=== PATIENT | female | born 1980 | race Caucasian/White ===

== ENCOUNTER → 2017-08-19 | Emergency (ER) | payer MEDICARE, OTHER ==
[~2017-08-19] VITALS: Ht 172.7 cm; Wt 68.9 kg
[~2017-08-19] MED LIST: ABILIFY10 MG PO; ADDERALL 20 MG20 MG PO; AMBIEN5 MG PO; CITALOPRAM HBR20 MG PO; CLONIDINE HCL0.2 MG PO; CYMBALTA30 MG PO; IBUPROFEN400 MG PO; LAMICTAL200 MG PO; LATUDA80 MG PO; MIRALAX17 GM PO; NORCO 5-325 TA1 EACH PO; PRILOSEC OTC20 MG PO; TYLENOL EXTRA500 MG PO; VYVANSE70 MG PO; WELLBUTRIN SR100 MG PO; XANAX1 MG PO; ZOLPIDEM TARTRA10 MG PO
--- NOTE | 2017-08-19 18:57 | EKG ---
[facility] [address] [place], [place] [address] Signed Normal sinus rhythm Normal ECG When compared with ECG of 06-APR-2016 20:56, No significant change was found Confirmed by MARK HARMON MD ([id number]) on 08/19/2017 6:57:18 PM Electronically Signed By: MARK HARMON MD 08/19/17 1857 PATIENT NAME: SETH GAONA LIGIA Electrocardiogram DATE OF : 78 PHYSICIAN: MARK HARMON MD REPORT #: [id number] REPORT IS CONFIDENTIAL AND NOT TO BE RELEASED WITHOUT AUTHORIZATION
== END ==
LOC: ED 07:30
DX: R55 Syncope and collapse (principal); F17.200 Nicotine dependence, unspecified, uncomplicated; Z88.5 Allergy status to narcotic agent; Z79.899 Other long term (current) drug therapy
CPT/HCPCS: 80053; 85025; 93005; 93010; 96360; 99284; J7040

== ENCOUNTER 2018-06-20 07:55 | Emergency (ER) | payer MEDICARE, OTHER ==
[~2018-06-20] VITALS: Ht 172.7 cm; Wt 69.0 kg
--- OUTSIDE RECORDS SUMMARY | ~2018-06-20 | XMS | Clinical Summary ---
Demographics + + + | Address | [address] | | | [place] [address] | + + + | Home Phone | | + + + | Preferred Language | Unknown | + + + | Marital Status | Unknown | + + + | Mosque Affiliation | Unknown | + + + | Race | Unknown | + + + | Ethnic Group | Unknown | + + + Author + + + | Author | [facility] | | | and [place] | + + + | Organization | [facility] | | | and [place] | + + + | Address | Unknown | + + + | Phone | Unavailable | + + + Support + + + + + | Name | Relationship | Address | Phone | + + + + + | Terrence Ortiz | ECON | [place] | | | | | [address] | | + + + + + Care Team Providers + +------+ + | Care Archaeologist Name | Role | Phone | + +------+ + | Kylah Monroe | PP | | | PA | | | + +------+ + Allergies No Known Allergies Medications + + + +---------+------+------+-------+ | Medication | Sig | Dispensed | Refills | Star | End | Statu | | | | | | t | Date | s | | | | | | Date | | | + + + +---------+------+------+-------+ | cyanocobalamin | Take 5,000 mcg by | | 0 | | | Activ | | (VITAMIN B-12) 1000 | mouth Daily. | | | | | e | | MCG tablet | | | | | | | + + + +---------+------+------+-------+ | L-METHYLFOLATE PO | Take 1 tablet by | | 0 | | | Activ | | | mouth Daily. 15 mg | | | | | e | + + + +---------+------+------+-------+ | cloNIDine | Take 0.2 mg by mouth | | 0 | | | Activ | | (CATAPRES) 0.2 MG | nightly. | | | | | e | | tablet | | | | | | | + + + +---------+------+------+-------+ | zolpidem (AMBIEN) | Take 10 mg by mouth | | 0 | | | Activ | | 10 mg tablet | nightly. | | | | | e | + + + +---------+------+------+-------+ Active Problems + + + | Problem | Noted Date | + + + | Near syncope | 07/25/2017 | + + + | Syncope | 07/25/2017 | + + + | Chronic low back pain with right-sided sciatica | 06/25/2016 | + + + | Spondylosis of lumbar region without myelopathy or radiculopathy | 06/25/2016 | + + + | Facet arthritis of lumbar region (HCC) - L4/L5, L5/S1 | 06/25/2016 | + + + | Bulge of lumbar disc without myelopathy - l5/S1 | 06/25/2016 | + + + | Lumbar radiculopathy | 06/25/2016 | + + + Family History + + +------+ + | Medical History | Relation | Name | Comments | + + +------+ + | Hypertension | Father | | | + + +------+ + | Mental illness | Father | | | + + +------+ + | Arthritis | Maternal | | | | | Grandfath | | | | | er | | | + + +------+ + | Bleeding problems | Maternal | | BLOOD CLOTS | | | Grandfath | | | | | er | | | + + +------+ + | Diabetes | Maternal | | | | | Grandfath | | | | | er | | | + + +------+ + | Thyroid disease | Maternal | | | | | Grandfath | | | | | er | | | + + +------+ + | Arthritis | Maternal | | | | | Grandmoth | | | | | er | | | + + +------+ + | Bleeding problems | Maternal | | BLOOD CLOTS | | | Grandmoth | | | | | er | | | + + +------+ + | Breast cancer | Maternal | | | | | Grandmoth | | | | | er | | | + + +------+ + | Hypertension | Maternal | | | | | Grandmoth | | | | | er | | | + + +------+ + | Stroke | Maternal | | | | | Grandmoth | | | | | er | | | + + +------+ + | Colon cancer | Mother | | | + + +------+ + | Uterine cancer | Mother | | | + + +------+ + | Alcohol abuse | Paternal | | | | | Grandfath | | | | | er | | | + + +------+ + | Hypertension | Paternal | | | | | Grandmoth | | | | | er | | | + + +------+ + | Other (see comment) | Paternal | | LUNG PROBLEMS | | | Grandmoth | | | | | er | | | + + +------+ + | Seizures | Neg Hx | | | + + +------+ + + +------+ + + | Relation | Name | Status | Comments | + +------+ + + | Child | | Other | STATUS NOT LISTED | + +------+ + + | Child | | Other | STATUS NOT LISTED | + +------+ + + | Father | | Alive | | + +------+ + + | Maternal Grandfather | | | | | | | (Age | | | | | 87) | | + +------+ + + | Maternal Grandmother | | | STROKE | | | | (Age | | | | | 77) | | + +------+ + + | Mother | | Alive | | + +------+ + + | Paternal Grandfather | | Other | STATUS NOT LISTED | + +------+ + + | Paternal Grandmother | | | LUNG DISORDER | | | | (Age | | | | | 78) | | + +------+ + + Social History + +-------+ +--------+ + | Tobacco Use | Types | Packs/Day | Years | Date | | | | | Used | | + +-------+ +--------+ + | Current Every Day | | 1 | 17 | Started: 2000 | | Smoker | | | | | + +-------+ +--------+ + + +---+---+---+ | Smokeless Tobacco: | | | | | Never Used | | | | + +---+---+---+ + + +---------+ + | Alcohol Use | Drinks/We | oz/Week | Comments | | | ek | | | + + +---------+ + | Yes | 0 | 0.0 | Twice a year | | | Standard | | | | | drinks or | | | | | | | | | | equivalen | | | | | t | | | + + +---------+ + + + + | Sex Assigned at | Date Recorded | | | | + + + | Not on file | | + + + + + + + | Job Start Date | Occupation | Industry | + + + + | Not on file | Not on file | Not on file | + + + + + + + + | Travel History | Travel Start | Travel End | + + + + + + | No recent travel history available. | + + Last Filed Vital Signs + + + + | Vital Sign | Reading | Time Taken | + + + + | Blood Pressure | 111/71 | 09/05/2017 1013 PDT | + + + + | Pulse | 80 | 09/05/2017 1013 PDT | + + + + | Temperature | - | - | + + + + | Respiratory Rate | 16 | 09/05/2017 1013 PDT | + + + + | Oxygen Saturation | 100% | 09/05/20171012 PDT | + + + + | Inhaled Oxygen | - | - | | Concentration | | | + + + + | Weight | 70.3 kg (155 lb) | 09/05/20171012 PDT | + + + + | Height | 172.7 cm (5' 8") | 09/05/20171012 PDT | + + + + | Body Mass Index | 23.57 | 09/05/20171012 PDT | + + + + Plan of Treatment +--------+---------+ + + + | Date | Type | Specialty | Care Team | Description | +--------+---------+ + + + | 07/21/ | Office | | Kam Hoover, | | | 2019 | Visit | | [address]UL[address] | | | | | | [address] [place] | | | | | | [place] [address] | | | | | | [phone] | | | | | | | | +--------+---------+ + + + + + + + + | Health Maintenance | Due Date | Last Done | Comments | + + + + + | Vaccine: | | | | | Dtap/Tdap/Td (1 - | 9 | | | | Tdap) | | | | + + + + + | Vaccine: | | | | | Pneumococcal 19-64 | 9 | | | | (PPSV23 only) Medium | | | | | Risk (1 of 1 - | | | | | PPSV23) | | | | + + + + + | Adult Annual | | | | | Wellness Visit | 5 | | | + + + + + | Vaccine: Influenza | | | | | (Season Ended) | 9 | | | + + + + + Results Not on filefrom Last 3 Months Insurance + +--------+ +--------+ +---------+--------+ | Payer | Benefi | Subscriber | Effect | Phone | Address | Type | | | t Plan | ID | maya | | | | | | / | | Dates | | | | | | Group | | | | | | + +--------+ +--------+ +---------+--------+ | MEDICARE | MEDICA | [id number] | | [phone] | | Medica | | | RE | | 004-Pr | 5 | | re | | | PART A | | esent | | | | | | AND B | | | | | | + +--------+ +--------+ +---------+--------+ | MEDICARE | MEDICA | [id number] | | [phone] | | Medica | | | RE | | 004-Pr | 5 | | re | | | PART A | | esent | | | | | | AND B | | | | | | + +--------+ +--------+ +---------+--------+ | [place] | MEDICA | [id number] | | [phone] | | [place] | | | [place] | | 017-Pr | 2 | | id | | | PLUS | | esent | | | | + +--------+ +--------+ +---------+--------+ | [place] | MEDICA | [id number] | 07/24/19 | [phone] | | Med[place] | | | [place] | | 18-Pre | 2 | | id | | | PLUS | | sent | | | | + +--------+ +--------+ +---------+--------+ + +--------+ +--------+ + + | Guarantor Name | Accoun | Relation to | Date | Phone | Billing Address | | | t Type | Patient | of | | | | | | | | | | + +--------+ +--------+ + + | Sujata Iniguez | Person | Self [birth year] | [address] | | | al/Fam | | 1980 | | [address] [place], [place] | | | lito | | | [address] (Home) | [address] | + +--------+ +--------+ + + | Sujata Iniguez | Person | Self [birth year] | | [address] | | | al/Fam | | 1980 | | [address] [place], [place] | | | lito | | | 7 (Home) | [address] | + +--------+ +--------+ + + Advance Directives Patient has advance care planning documents on file. For more information, please contact:[facility] [place] [address]
--- OUTSIDE RECORDS SUMMARY | ~2018-06-20 | XMS | Clinical Summary ---
Demographics + + + | Address | [address] | | | [place] [address] | + + + | Home Phone | | + + + | Preferred Language | Unknown | + + + | Marital Status | | + + + | Zoroastrian Affiliation | Unknown | + + + | Race | Unknown | + + + | Ethnic Group | Unknown | + + + Author + + + | Author | [facility] | + + + | Organization | [facility] | + + + | Address | Unknown | + + + | Phone | Unavailable | + + + Support + + +---------+ + | Name | Relationship | Address | Phone | + + +---------+ + | Terrence Ortiz | ECON | Unknown | | + + +---------+ + Care Team Providers + +------+ + | Care Sound Controller Name | Role | Phone | + +------+ + | Kylah Monroe | PP | | + +------+ + Allergies Not on File Current Medications + + +-------+---------+------+------+-------+ | Prescription | Sig. | Disp. | Refills | Star | End | Statu | | | | | | t | Date | s | | | | | | Date | | | + + +-------+---------+------+------+-------+ | Cyanocobalamin | Take 1,000 mcg by | | | | | Activ | | (VITAMIN B 12 PO) | mouth. | | | | | e | + + +-------+---------+------+------+-------+ | Levomefolate | Take 50 mg by mouth. | | | | | Activ | | Glucosamine | | | | | | e | | (METHYLFOLATE PO) | | | | | | | + + +-------+---------+------+------+-------+ | Cholecalciferol | Take by mouth 2 | | | | | Activ | | (VITAMIN D3) 2000 | (two) times daily. | | | | | e | | units TABS | | | | | | | + + +-------+---------+------+------+-------+ Active Problems + + + | Problem [...] | 02/20/2016 | + + + Encounters +--------+---------+ + + + | Date | Type | Specialty | Care Team | Description | +--------+---------+ + + + | 04/16/ | Office | | Angelita Mccallum DO | Orthostatic | | 2019 | Visit | | | hypotension (Primary | | | | | | Dx) | +--------+---------+ + + + from Last 3 Months [...] AM PST | + + + + Plan of Treatment +--------+---------+ + + + | Date | Type | Specialty | Care Team | Description | +--------+---------+ + + + | 07/02/ | Office | | Angelita Mccallum DO | | | 2019 | Visit | | [address] | | | | | | [place] | | | | | | [address] | | | | | | | [...] +------+-------+ + | MEDICARE | MEDICA | [id number] | | | [address] | | | RE | | | | [place] [address] | | | IP-OP | | | | | + +--------+ +------+-------+ + | MEDICAID | MEDICA | [id number] | | | [address] | | | ID | | | | [place] | | | [place] | | | | [address] | + +--------+ +------+-------+ + + +--------+ +--------+ + + | Guarantor Name | Accoun | Relation to | Date | Phone | Billing Address | | | t Type | Patient | of | | | | | | | | | | + +--------+ +--------+ + + | SETH INIGUEZ | Person | Self [birth year] | Home: | [address] | | | al/Fam | | 1980 | [phone] | [address] [place] | | | [place] | | | [phone] | [phone] | + +--------+ +--------+ + +
--- OUTSIDE RECORDS SUMMARY | ~2018-06-20 | XMS | Clinical Summary ---
Demographics + + + | Address | [address] | | | [place] [address] | + + + | Home Phone | | + + + | Preferred Language | Unknown | + + + | Marital Status | Single | + + + | Druze Affiliation | NON | + + + | Race | White | + + + | Ethnic Group | Not or | + + + Author + + + | Author | [facility] LOC[facility] | + + + | Organization | NON REVENUE LOCATIONS | + + + | Address | Unknown | + + + | Phone | Unavailable | + + + Support + + +---------+ + | Name | Relationship | Address | Phone | + + +---------+ + | Terrence Ortiz | ECON | Unknown | | + + +---------+ + Care Team Providers + +------+ + | Care Cardiac Cath Technician Name | Role | Phone | + +------+ + | Kylah Monroe | PP | | + +------+ + Source Comments MELANIE is fully live on both [facility] and [facility] Allergies No Known Allergies Current Medications + + +-------+---------+------+------+-------+ | Prescription | Sig. | Disp. | Refills | Star | End | Statu | | | | | | t | Date | s | | | | | | Date | | | + + +-------+---------+------+------+-------+ | Cholecalciferol, | Take 5,000 Units by | | | | | Activ | | Vitamin D3, 5,000 | mouth once daily. | | | | | e | | unit oral tablet | | | | | | | + + +-------+---------+------+------+-------+ | LEVOMEFOLATE | Take by mouth once | | | | | Activ | | CALCIUM (ELFOLATE | daily. | | | | | e | | ORAL) | | | | | | | + + +-------+---------+------+------+-------+ | cyanocobalamin | Take 1,000 mcg by | | | | | Activ | | (VITAMIN B-12) 1,000 | mouth once daily. | | | | | e | | mcg oral tablet | | | | | | | + + +-------+---------+------+------+-------+ Active Problems + + + | Problem | Noted Date | + + + | Rectal prolapse | 02/20/2016 | + + + Family History + + +------+ + | Medical History | Relation | Name | Comments | + + +------+ + | GI | Brother | | colon polyp | + + +------+ + | Cancer | Father | | no colorectal cancer in family | + + +------+ + | Psychiatry | Father | | bipolar | + + +------+ + | Pulmonary | Father | | sleep apnea | + + +------+ + | Cancer | Mother | | | + + +------+ + + +------+--------+ + | Relation | Name | Status | Comments | + +------+--------+ + | Brother | | | | + +------+--------+ + | Father | | | | + +------+--------+ + | Mother | | | | + +------+--------+ + Social History [...] Pressure | 107/77 | 09/18/2016 1:23 PM PDT | + + + + | Pulse | 70 | 09/18/2016 1:23 PM PDT | + + + + | Temperature | 36.7 C (98.1 F) | 09/18/2016 1:23 PM PDT | + + + + | Respiratory Rate | 16 | 09/18/2016 1:23 PM PDT | + + + + | Oxygen Saturation | - | - | + + + + | Inhaled Oxygen | - | - | | Concentration | | | + + + + | Weight | 71.2 kg (156 lb 14.4 | 09/18/2016 1:23 PM PDT | | | oz) | | + + + + | Height | 172.7 cm (5' 8") | 09/18/2016 1:23 PM PDT | + + + + | Body Mass Index | 23.86 | 09/18/2016 1:23 PM PDT | + + + + Plan of Treatment + + + + + | Health Maintenance | Due Date | Last Done | Comments | + + + + + | Pneumococcal (Adult) | | | | | (1 of 1 - PPSV23) | 9 | | | + + + + + | Influenza (Flu) | | | | | vaccination (#1) | 8 | | | + + + + + Results Not on filefrom Last 3 Months Insurance + +--------+ +--------+ + + | Payer | Benefi | Subscriber | Type | Phone | Address | | | t Plan | ID | | | | | | / | | | | | | | Group | | | | | + +--------+ +--------+ + + | MEDICARE | MEDICA | xxxxxxxxxx | Medica | [phone] | [address] | | | RE A & | | re | [phone] | [place] [address] | | | B | | | | | + +--------+ +--------+ + + | [place]ID [place] | OHP | xxxxxxxx | Medica | [phone] [address] [address] | | | PLUS | | id | [phone] | [place] [address] | | | OPEN | | | | | | | CARD | | | | | + +--------+ +--------+ + + + +--------+ +--------+ + + | Guarantor Name | Accoun | Relation to | Date | Phone | Billing Address | | | t Type | Patient | of | | | | | | | | | | + +--------+ +--------+ + + | SETH INIGUEZ | Person | Self [birth year] | Home: | [address] | | | al/Fam | | 1981 | [phone] | [place] [address] | | | [place] | | | [address] | | + +--------+ +--------+ + +
--- OUTSIDE RECORDS SUMMARY | ~2018-06-20 | XMS | Clinical Summary ---
Demographics + + + | Address | [address] | | | [place] [address] | + + + | Home Phone | | + + + | Preferred Language | Unknown | + + + | Marital Status | Unknown | + + + | Taoism Affiliation | Unknown | + + + | Race | Unknown | + + + | Ethnic Group | Unknown | + + + Author + + + | Author | [facility] | | | and [place] | + + + | Organization | [facility] | | | and [place] | + + + | Address | Unknown | + + + | Phone | Unavailable | + + + Support + + + + + | Name | Relationship | Address | Phone | + + + + + | Terrence Ortiz | ECON | [place] | | | | | [address] | | + + + + + Care Team Providers + +------+ + | Care Lens Blank Gauger Name | Role | Phone | + [...] [place] | | | | | | [place] [address] | | | | | | [phone] | | | | | | | [...] +--------+ +---------+--------+ | MEDICARE | MEDICA | [id number] | | [phone] | | Medica | | | RE | | 004-Pr | 5 | | re | | | PART A | | esent | | | | | | AND B | | | | | | + +--------+ +--------+ +---------+--------+ | MEDICARE | MEDICA | [id number] | | [phone] | | Medica | | | RE | | 004-Pr | 5 | | re | | | PART A | | esent | | | | | | AND B | | | | | | + +--------+ +--------+ +---------+--------+ | [place]ID [place] | MEDICA | [id number] | | [phone] | | Medica | | | [place] | | 017-Pr | 2 | | id | | | PLUS | | esent | | | | + +--------+ +--------+ +---------+--------+ | [place] | MEDICA | [id number] | 07/24/19 | [phone] | | Medica [...] [place] | | | 7 (Home) | [address] | + +--------+ +--------+ + + | Sujata Iniguez | Person | Self [birth year] | | [address] | | | al/Fam | | 1980 | | [address] [place], [place] | | | [place] | | | 7 (Home) | [address] | + +--------+ +--------+ + + Advance Directives Patient has advance care planning documents on file. For more information, please contact:[facility] [place] [address]
--- OUTSIDE RECORDS SUMMARY | ~2018-06-20 | XMS | Encounter Summary ---
Demographics + + + | Address | [address] | | | [place] [address] | + + + | Home Phone | | + + + | Preferred Language | Unknown | + + + | Marital Status | | + + + | Buddhist Affiliation | Unknown | + + + | Race | Unknown | + + + | Ethnic Group | Unknown | + + + Author + + + | Author | [facility] | + + + | Organization | [facility] | + + + | Address | Unknown | + + + | Phone | Unavailable | + + + Support + + +---------+ + | Name | Relationship | Address | Phone | + + +---------+ + | Terrence Ortiz | ECON | Unknown | | + + +---------+ + Care Team Providers + +------+ + | Care Robotic Toy Inventor Name | Role | Phone | + [...] | | 2019 | Visit | Cardiology [place] | [address] | hypotension (Primary | | | | [address] | [place] | Dx) | | | | [address] [address] | | | | | [place] [address] | | | | | | [phone] | | | +--------+---------+ + + + [...] may be different from rani kulkarni. [facility] Cardiology Cardiology Follow Up Note Reason for [...] this monitor. The patient is a current agsh-efk-zrwd-a-day smoker. We discussed smoking cessation. She has [...] + + | 07/02/ | Office | Cardiology | Angelita Mccallum DO | | | 2018 | Visit | | [address] | | | | | | [place], [place] | | | | | | [address] | | | | | | | | +--------+---------+ + + + as of this encounter Visit Diagnoses + + | Diagnosis | + + | Orthostatic hypotension - Primary | + +
--- OUTSIDE RECORDS SUMMARY | ~2018-06-20 | XMS | Clinical Summary ---
Demographics + + + | Address | [address] | | | [place] [address] | + + + | Home Phone | | + + + | Preferred Language | Unknown | + + + | Marital Status | Single | + + + | Religion Affiliation | NON | + + + [...] Team Providers + +------+ + | Care Car Oiler Name | Role | Phone | + +------+ + | Kylah Monroe | PP | | + +------+ + Source Comments MELANIE is fully live on both [facility] and [facility] InPatient.[facility] Allergies No Known Allergies Current [...] | MEDICA | xxxxxxxxxx | Medica | [phone] | [address] | | | RE A & | | re | [phone] | [place] [address] | | | B | | | | | + +--------+ +--------+ + + | MEDICAID [place] | OHP | xxxxxxxx | Medica | [phone] [address] [address] | | | PLUS | | id | [phone] | [place] [address] | | | OPEN | | | [...] | | al/Fam | | 1981 | [phone] | [place] [address] | | | [place] | | | [address] | | + +--------+ +--------+ + +
--- OUTSIDE RECORDS SUMMARY | ~2018-06-20 | XMS | Encounter Summary ---
Demographics + + + | Address | [address] | | | [place] [address] | + + + | Home Phone | | + + + | Preferred Language | Unknown | + + + | Marital Status | | + + + | Worship Affiliation | Unknown | + + + | Race | Unknown | + + + | Ethnic Group | Unknown | + + + Author + + + | Author | [facility] | + + + | Organization | [facility] | + + + | Address | Unknown | + + + | Phone | Unavailable | + + + Support + + +---------+ + | Name | Relationship | Address | Phone | + + +---------+ + | Terrence Ortiz | ECON | Unknown | | + + +---------+ + Care Team Providers + +------+ + | Care Spacer Type Bar And Segment Name | Role | Phone | + [...] | | 2019 | Visit | Cardiology [place] | [address] | hypotension (Primary | | | | [address] | [place] | Dx) | | | | [address] [address] | | | | | [place] [address] | | | | | | [phone] | | | +--------+---------+ + + + [...] note may be different from rani kulkarni. [facility] Cardiology Cardiology Follow Up Note Reason [...] this monitor. The patient is a current ssdw-vvw-qfhg-a-day smoker. We discussed smoking cessation. She has [...] | | | | | [place] [place], [place] | | | | | | [address] | | | | | | | | +--------+---------+ + + + as of this encounter Visit Diagnoses + + | Diagnosis | + + | Orthostatic hypotension - Primary | + +
--- OUTSIDE RECORDS SUMMARY | ~2018-06-20 | XMS | Clinical Summary ---
Demographics + + + | Address | [address] | | | [place] [address] | + + + | Home Phone | | + + + | Preferred Language | Unknown | + + + | Marital Status | | + + + | Buddhist Affiliation | Unknown | + + + | Race | Unknown | + + + | Ethnic Group | Unknown | + + + Author + + + | Author | [facility] | + + + | Organization | [facility] | + + + | Address | Unknown | + + + | Phone | Unavailable | + + + Support + + +---------+ + | Name | Relationship | Address | Phone | + + +---------+ + | Terrence Ortiz | ECON | Unknown | | + + +---------+ + Care Team Providers + +------+ + | Care Roller Man Name | Role | Phone | + [...] [place] | | | | | | [address] | | | | | | | [...] +------+-------+ + | MEDICARE | MEDICA | [id number] | | | [address] | | | RE | | | | [place] [address] | | | IP-OP | | | | | + +--------+ +------+-------+ + | MEDICAID | MEDICA | [id number] | | | [address] | | | ID | | | | [place] | | | [place] | | | | [phone] | + +--------+ +------+-------+ + + +--------+ [...] | [place] | | | [address] | [address] | + +--------+ +--------+ + +
--- OUTSIDE RECORDS SUMMARY | 2018-06-20 07:58 | XMS ---
PreManage Notification: SETH GAONA Security Sterile Process Tech Events No recent Security Events currently on file CRITERIA MET - RAVENP CARE PROVIDERS HEMAL CARBAJAL Physician Tip Tester Current PHONE: Unknown Heather has no Care Guidelines for this patient. EShyann VISIT COUNT (12 MO.) 2 BETO [facility] TOTAL 2 NOTE: Visits indicate total known visits. ED/UCC VISIT TRACKING (12 MO.) 06/20/2018 07:56 [facility] [place] TYPE: Emergency COMPLAINT: - BACK PAIN/NO INJURY 08/19/2017 07:30 [facility] [place] TYPE: Emergency COMPLAINT: - SYNCOPE DIAGNOSES: - Other equipment operator intermodal yard (current) drug therapy - Syncope and collapse - Nicotine dependence, unspecified, uncomplicated - Allergy status to narcotic agent status INPATIENT VISIT TRACKING (12 MO.) No inpatient visits to display in this time frame [id number]
[2018-06-20] MEDS ORDERED: CYCLOBENZAPRINE10 MG PO (08:19)
[2018-06-20] MEDS ORDERED: ULTRAM50 MG PO (08:19)
[2018-06-20] MEDS ORDERED: VITAMIN D35000 UNI1 PO (08:20)
== END 2018-06-20 10:37 | disposition home or self-care (01) ==
LOC: ED 07:55
DX: G89.29 Other chronic pain (principal); M54.5 Low back pain; F32.9 Major depressive disorder, single episode, unspecified; F17.200 Nicotine dependence, unspecified, uncomplicated; Z90.710 Acquired absence of both cervix and uterus; Z88.5 Allergy status to narcotic agent; Z79.899 Other long term (current) drug therapy
CPT/HCPCS: 96372; 99283-25; 99406; J1885; J2550

== ENCOUNTER 2018-07-05 17:53 | Emergency (ER) | payer MEDICARE, OTHER ==
[~2018-07-05] VITALS: Ht 172.7 cm; Wt 69.0 kg
--- OUTSIDE RECORDS SUMMARY | ~2018-07-05 | XMS | Encounter Summary ---
Demographics + + + | Address | [address] | | | [place] [address] | + + + | Home Phone | | + + + | Preferred Language | Unknown | + + + | Marital Status | Single | + + + | Hindu Affiliation | NON | + + + | Race | White | + + + | Ethnic Group | Not or | + + + Author + + + | Author | [facility] | + + + | Organization | [facility] | + + + | Address | Unknown | + + + | Phone | Unavailable | + + + Support + + +---------+ + | Name | Relationship | Address | Phone | + + +---------+ + | Terrence Ortiz | ECON | Unknown | | + + +---------+ + Care Team Providers + +------+ + | Care Health Researcher Name | Role | Phone | + +------+ + | Kylah Monroe | PCP | | + +------+ + Encounter Details +--------+---------+ + + + | Date | Type | Department | Care Team | Description | +--------+---------+ + + + | 09/18/ | Office | Preoperative | Jazmín Chamorro NP | Preop examination | | 2017 | Visit | Medicine Clinic at | | (Primary Dx) | | | | [facility] 4th Floor [address] | | | | | | [address] Mail | | | | | | Code: [address] | | | | | | for Health and | | | | | | Healing,4th Floor | | | | | | [place], [place] | | | | | | [address] | | | | | | [phone] | | | +--------+---------+ + + + Social History + +-------+ +--------+------+ | Tobacco Use | Types | Packs/Day | Years | Date | | | | | Used | | + +-------+ +--------+------+ | Current Every Day | | 1.5 | | | | Smoker | | | | | + +-------+ +--------+------+ + +---+---+---+ | Smokeless Tobacco: | | | | | Never Used | | | | + +---+---+---+ + + +---------+ + | Alcohol Use | Drinks/Week | oz/Week | Comments | + + +---------+ + | Yes | | | 4 times a year | + + +---------+ + + + [...] recent travel history available. | + + documented as of this encounter Progress Notes Jazmín Chamorro NP - 09/18/2016 3:00 PM PDTPt was a no show. documented in this encounter Plan of Treatment + + +--------+ + + | Name | Type | Priori | Associated Diagnoses | Order Schedule | | | | ty | | | + + +--------+ + + | COMMUNICATION TO [facility] | Procedures | Routin | Preop examination | Ordered: 09/18/2016 | | LAB DRAW | | e | | | + + +--------+ + + documented as of this encounter Visit Diagnoses + + | Diagnosis | + + | Preop examination - Primary Preoperative examination, unspecified | + + documented in this encounter"
--- OUTSIDE RECORDS SUMMARY | ~2018-07-05 | XMS | Encounter Summary ---
Demographics + + + | Address | [address] | | | [place] [address] | + + + | Home Phone | | + + + | Preferred Language | Unknown | + + + | Marital Status | Single | + + + | Adventism Affiliation | NON | + + + | Race | White | + + + | Ethnic Group | Not or | + + + Author + + + | Author | [facility] | + + + | Organization | [facility] | + + + | Address | Unknown | + + + | Phone | Unavailable | + + + Support + + +---------+ + | Name | Relationship | Address | Phone | + + +---------+ + | Terrence Ortiz | ECON | Unknown | | + + +---------+ + Care Team Providers + +------+ + | Care Monument Erector Name | Role | Phone | + +------+ + | Kylah Monroe | PCP | | + +------+ + Reason for Referral Consult to [place] (Routine) +--------+--------+ + + + + | Status | Reason | Specialty | Diagnoses / | Referred By | Referred To | | | | | Procedures | Contact | Contact | +--------+--------+ + + + + | Closed | | Surgery | Diagnoses | Marian Huang, | Marian Huang, | | | | | Rectal | [address] | | | | | prolapse | Jeremy Velasquez | Jeremy Velasquez | | | | | Procedures | Julia Morel | Julia Morel | | | | | REQUEST TO | [facility] [place] | [place], [place] | | | | | SURGERY | [address] | [address] | | | | | COLD PRESS OPERATOR | Phone: | Phone: | | | | | | [phone] | [phone] | | | | | | Fax: | Fax: | | | | | | [phone] | [phone] | +--------+--------+ + + + + Reason for Visit + + + | Reason | Comments | + + + | Surgery Scheduling | LM re surgery scheduling | + + + Encounter Details +--------+ + + + + | Date | Type | Department | Care Team | Description | +--------+ + + + + | 06/07/ | Telephone | [facility] | Marian Huang MD | Surgery Scheduling | | 2016 | | [place] [address] [phone] | [address] | (LM re surgery | | | | [place] | [facility], | scheduling) | | | | Mailcode: [facility] [address] | | | | | for [facility] and | [phone] | | | | | [facility] [address] | | | | | | [place], [place] | | | | | | [address] | | | | | | [phone] | | | +--------+ + + + + Social History + +-------+ [...] + + documented as of this encounter Plan of Treatment Not on filedocumented as of this encounter Visit Diagnoses + + | Diagnosis | + + | Rectal prolapse - Primary | + + documented in this encounter"
--- OUTSIDE RECORDS SUMMARY | ~2018-07-05 | XMS | Encounter Summary ---
Demographics + + + | Address | [address] | | | [place] [address] | + + + | Home Phone | | + + + | Preferred Language | Unknown | + + + | Marital Status | Single | + + + | Jainism Affiliation | NON | + + + | Race | White | + + + | Ethnic Group | Not or | + + + Author + + + | Author | [facility] | + + + | Organization | [facility] | + + + | Address | Unknown | + + + | Phone | Unavailable | + + + Support + + +---------+ + | Name | Relationship | Address | Phone | + + +---------+ + | Terrence Ortiz | ECON | Unknown | | + + +---------+ + Care Team Providers + +------+ + | Care Block Cleaner Name | Role | Phone | + +------+ + PCP | Unavailable | + +------+ + Encounter Details +--------+ + + + + | Date | Type | Department | Care Team | Description | +--------+ + + + + | 08/28/ | Results | [facility] [address] | Emilie Banuelos | | | 2010 | Only | [address] | [phone] | | | | | [place] | | | | | | [address] | | | +--------+ + + + + Social History + +-------+ +--------+------+ | Tobacco Use | Types | Packs/Day | Years | Date | | | | | Used | | + +-------+ +--------+------+ | Never Assessed | | | | | + +-------+ +--------+------+ + + + | Sex Assigned at [...] Not on filedocumented as of this encounter Procedures + +--------+ + + + | Procedure Name | Priori | Date/Time | Associated Diagnosis | Comments | | | ty | | | | + +--------+ + + + | CBC WITH MANUAL | Routin | 08/29/2010 | | Results for this | | DIFFERENTIAL | e | 5:11 AM | | procedure are in the | | | | PDT | | results section. | + +--------+ + + + | CAP GLU,POC | Routin | 08/28/2010 | | Results for this | | | e | 7:16 AM | | procedure are in the | | | | PDT | | results section. | + +--------+ + + + documented in this encounter Results CBC WITH MANUAL DIFFERENTIAL (08/29/2010 5:11 AM PDT) + + + + + + | Component | Value | Ref Range | Performed | Pathologist | | | | | At | Signature | + + + + + + | WHITE BLOOD | 13.5 (H) | 4.3 - 11.0 X10 | [facility] | | | CELL COUNT | | 3/ul | A [facility] | | | | | | [facility] | | + + + + + + | WBC, | AUDITOR INTERNAL | X10 3/uL | [facility] | | | ADJUSTED | | | A [facility] | | | | | | CENTER | | + + + + + + | HEMOGLOBIN | 13.3 | 12.0 - 16.0 | [facility] | | | | | g/dL | A [facility] | | | | | | CENTER | | + + + + + + | RED BLOOD | 4.27 | 4.2 - 5.4 X10 | [facility] | | | CELL COUNT | | 6/uL | A [facility] | | | | | | CENTER | | + + + + + + | HEMATOCRIT | 38.8 | 38.0 - 47.0 % | [facility] | | | | | | A [facility] | | | | | | CENTER | | + + + + + + | MCV | 90.8 | 82 - 100 fl | [facility] | | | | | | A [facility] | | | | | | CENTER | | + + + + + + | MCH | 31.1 | 28.0 - 32.0 pg | [facility] | | | | | | A [facility] | | | | | | CENTER | | + + + + + + | MCHC | 34.3 | 32 - 36 g/dL | [facility] | | | | | | A [facility] | | | | | | CENTER | | + + + + + + | RDW | 11.9 (L) | 12 - 15 fL | [facility] | | | | | | A [facility] | | | | | | CENTER | | + + + + + + | PLATELET | 269 | 150 - 450 X10 3 | [facility] | | | COUNT | | | A [facility] | | | | | | CENTER | | + + + + + + | MPV | 6.8 (L) | 9.0 - 12.0 fL | [facility] | | | | | | A [facility] | | | | | | CENTER | | + + + + + + | NEUTROPHIL | 77.2 | 40 - 80 % | [facility] | | | % | | | A [facility] | | | | | | CENTER | | + + + + + + | LYMPHOCYTE | 17.4 (L) | 20 - 50 % | [facility] | | | % | | | A [facility] | | | | | | CENTER | | + + + + + + | EOS % | 0.4 | 0 - 5 % | [facility] | | | | | | A [facility] | | | | | | CENTER | | + + + + + + | BASO % | 0.6 | 0 - 1 % | [facility] | | | | | | A [facility] | | | | | | CENTER | | + + + + + + | MONOCYTE % | 4.4 | 2 - 10 % | [facility] | | | | | | A [facility] | | | | | | CENTER | | + + + + + + | BANDS % | AUDITOR INTERNAL | 0 - 7 % | [facility] | | | | | | A [facility] | | | | | | CENTER | | + + + + + + | NEUTRO % | 65 | 40 - 70 % | [facility] | | | | | | A [facility] | | | | | | CENTER | | + + + + + + | LYMPHOCYTE | 24 | 10 - 45 % | [facility] | | | %, MANUAL | | | A MEDICAL | | | | | | CENTER | | + + + + + + | MONOCYTE%, | 11 (H) | 2 - 10 % | [facility] | | | MANUAL | | | A [facility] | | | | | | CENTER | | + + + + + + | EOSINOPHIL% | AUDITOR INTERNAL | 0 - 5 % | [facility] | | | , MANUAL | | | A MEDICAL | | | | | | CENTER | | + + + + + + | BASOPHIL%, | AUDITOR INTERNAL | 0 - 1 % | [facility] | | | MANUAL | | | A [facility] | | | | | | CENTER | | + + + + + + | REACTIVE | AUDITOR INTERNAL | 0.0 - 4.0 % | [facility] | | | LYMPHS % | | | A MEDICAL | | | | | | CENTER | | + + + + + + | BANDS % | AUDITOR INTERNAL | 0 - 7 % | [facility] | | | | | | A [facility] | | | | | | CENTER | | + + + + + + | METAMYELOCY | AUDITOR INTERNAL | 0 - 0 % | [facility] | | | APARNA % | | | A MEDICAL | | | | | | CENTER | | + + + + + + | MYELOCYTES | AUDITOR INTERNAL | 0 - 0 % | [facility] | | | % | | | A [facility]ICAL | | | | | | CENTER | | + + + + + + | PROMYELOCYT | AUDITOR INTERNAL | 0 - 0 % | [facility] | | | ES % | | | A MEDICAL | | | | | | CENTER | | + + + + + + | BLASTS | AUDITOR INTERNAL | 0 - 0 % | [facility] | | | | | | A MEDICAL | | | | | | CENTER | | + + + + + + | TOTAL CELLS | 100 | % | [facility] | | | COUNTED | | | A MEDICAL | | | | | | CENTER | | + + + + + + | RBC | NORM RBC MORPHOLOGY | NORMAL | [facility] | | | MORPHOLOGY | | | A [facility]ICAL | | | | | | CENTER | | + + + + + + | WBC | NORM WBC MORPHOLOGY | NORMAL | [facility] | | | MORPHOLOGY | | | A MEDICAL | | | | | | CENTER | | + + + + + + | PLATELET | NORM PLATELET MORPH | NORMAL | [facility] | | | MORPHOLOGY | | | A MEDICAL | | | | | | CENTER | | + + + + + + | NUCLEATED | AUDITOR INTERNAL | | [facility] | | | RBCS | | | A MEDICAL | | | | | | CENTER | | + + + + + + | GIANT PLT | AUDITOR INTERNAL | | [facility] | | | | | | A [facility] | | | | | | CENTER | | + + + + + + + + | Specimen | + + | | + + + + + + + | Performing | Address | City/State/Zipcode | Phone Number | | Organization | | | | + + + + + | [facility] | | | | | LABORATORY | | | | + + + + + | [facility] | And | [place] [address] | | | [facility] | Streets | | | + + + + + CAP GLU,POC (08/28/2010 7:16 AM PDT) + + + + + + | Component | Value | Ref Range | Performed | Pathologist | | | | | At | Signature | + + + + + + | BLOOD | 89Comment: Meter ID: | [id number] - 110 MG/DL | [facility] | | | GLUCOSE, | [id number]: | | OF CARE | | | POC | [id number] [place] | | TESTING | | | | | | | | | | | | | | + + + + + + + + | Specimen | + + | | + + + +---------+ + + | Performing | Address | City/State/Zipcode | Phone Number | | Organization | | | | + +---------+ + + | [facility] | | | | | TESTING | | | | + +---------+ + + documented in this encounter Visit Diagnoses Not on filedocumented in this encounter"
--- OUTSIDE RECORDS SUMMARY | ~2018-07-05 | XMS | Encounter Summary ---
Demographics + + + | Address | [address] | | | [place] [address] | + + + | Home Phone | | + + + | Preferred Language | Unknown | + + + | Marital Status | Single | + + + | Baptist Affiliation | NON | + + + | Race | White | + + + | Ethnic Group | Not or | + + + Author + + + | Author | [facility] | + + + | Organization | [facility] | + + + | Address | Unknown | + + + | Phone | Unavailable | + + + Support + + +---------+ + | Name | Relationship | Address | Phone | + + +---------+ + | Terrence Ortiz | ECON | Unknown | | + + +---------+ + Care Team Providers + +------+ + | Care Trial Judge Name | Role | Phone | + +------+ + | Kylah Monroe | PCP | | + +------+ + Reason for Visit + + + | Reason | Comments | + + + | History and physical | | | examination | | + + + Consultation (Routine) +--------+--------+ + + + + | Status | Reason | Specialty | Diagnoses / | Referred By | Referred To | | | | | Procedures | Contact | Contact | +--------+--------+ + + + + | Closed | | Surgery | Diagnoses | Michelle, | Dontae | | | | | Rectal | Paulino Rivero MD | Júnior Harp MD | | | | | prolapse | [facility] | [address] [facility] | [facility] | | | | | | [facility] | [facility], | | | | | | [address] | [place] | | | | | | [address] | [address] | | | | | | [place], | Phone: | | | | | | [place] [address] | [phone] | | | | | | Phone: | Fax: | | | | | | [phone] | [phone] | | | | | | Fax: | | | | | | | [phone] | | +--------+--------+ + + + + Encounter Details +--------+---------+ + + + | Date | Type | Department | Care Team | Description | +--------+---------+ + + + | 09/18/ | Office | Digestive Health | Marian Huang MD | Rectal prolapse | | 2017 | Visit | [facility] [address] | [address] | (Primary Dx) | | | | [address] | [address] [place], | | | | | Mailcode: [place] | [place] [address] | | | | | [facility] and | [phone] | | | | | [facility] [address] | | | | | | [place], [place] | | | | | | [address] | | | | | | [phone] | | | +--------+---------+ + + + [...] + + documented as of this encounter Last Filed Vital Signs + + + + + | Vital Sign | Reading | Time Taken | Comments | + + + + + | Blood Pressure | 107/77 | 09/18/2016 1:23 PM | | | | | PDT | | + + + + + | Pulse | 70 | 09/18/2016 1:23 PM | | | | | PDT | | + + + + + | Temperature | 36.7 C (98.1 F) | 09/18/2016 1:23 PM | | | | | PDT | | + + + + + | Respiratory Rate | 16 | 09/18/2016 1:23 PM | | | | | PDT | | + + + + + | Oxygen Saturation | - | - | | + + + + + | Inhaled Oxygen | - | - | | | Concentration | | | | + + + + + | Weight | 71.2 kg (156 lb 14.4 | 09/18/2016 1:23 PM | | | | oz) | PDT | | + + + + + | Height | 172.7 cm (5' 8") | 09/18/2016 1:23 PM | | | | | PDT | | + + + + + | Body Mass Index | 23.86 | 09/18/2016 1:23 PM | | | | | PDT | | + + + + + documented in this encounter Patient Instructions Patient Instructions Marian Huang MD - 09/18/2016 1:00 PM PDTPlan: Cancel surgery. Will need to reschedule for 4 weeks after she quits smoking. documented in this encounter Progress Notes EilAhsan MD - 09/18/2016 1:00 PM PDT Colorectal Surgery History and Physical Attending: Marian Huang MD Date: 09/18/2016 CC: recurrent rectal prolapse HPI: Sujata Iniguez is a 35 y.o. female representing to clinic for planned robotic rectopexy tomorrow (09/19/2016). Patient underwent robotic LAR 2012 for this prolapse that recurred several months after the repair. She has also undergone vaginal hysterectomy, anterior colporrhaphy, posterior vagin oplasty with transobturator tape (2010) for uterovaginal prolapse. She has no recurrent prol apse from her vagina. She has reducible prolapse of tissue from her anus that occurs ~ 5x/ day when she sits on t he toilet. She has blood on the toilet paper when she wipes associated with this. Her sympto ms since being seen in clinic December 2015 have changed minimally. She was previously sched uled for her operation on 07/25/2016, but this was deferred due to significant respiratory inf ection. She has ongoing diarrhea and mucousy discharge. She denies significant constipation. She underwent colonoscopy 04/02/2016 which revealed only small polyps in hepatic flexure abilio t were removed. She quit smoking 3 weeks ago. Her significant other does report that he smokes intermittent ly although tries to limit this in the patient's presence. PAST MEDICAL HISTORY: Past Medical History: Diagnosis Date ADHD (attention deficit hyperactivity disorder) Childhood asthma PTSD (post-traumatic stress disorder) Rectal prolapse Uterovaginal prolapse PAST SURGICAL HISTORY: Past Surgical History Procedure Laterality Date total vaginal hysterectomy, anterior colporrhaphy, posterior v plasty; transobturator tape (monarch) 08/28/2010 Robotic low anterior resection 01/26/2013 HOME MEDICATIONS: Current Medication List Name Sig CHOLECALCIFEROL (VITAMIN D3) 5,000 UNIT TABLET Take 5,000 Units by mouth once daily. CYANOCOBALAMIN (VIT B-12) 1,000 MCG TABLET Take 1,000 mcg by mouth once daily. ELFOLATE ORAL Take by mouth once daily. ALLERGIES: No Known Allergies SOCIAL HISTORY: Social History Social History Marital status: Single Spouse name: getting Number of children: 2 Years of education: 13 Occupational History former customer service Social History Main Topics Smoking status: Current Every Day Smoker Packs/day: 1.50 Smokeless tobacco: Never Used Alcohol use Yes Comment: 4 times a year Drug use: Not on file Sexual activity: Yes Other Topics Concern Not on file Social History Narrative Engaged On disability FAMILY HISTORY: Family History Problem Relation Cancer Father no colorectal cancer in family Psychiatry Father bipolar Pulmonary Father sleep apnea Cancer Mother GI Brother colon polyp REVIEW OF SYSTEMS: 13 pt ROS was completed and was negative except as per HPI. PHYSICAL EXAM: Vital signs: Ht 1.727 m (5' 8"), Wt 71.2 kg (156 lb 14.4 oz), BP 107/77, Pulse 70, Temperat ure 36.7 C (98.1 F), Temperature source Oral, RR 16, BMI 23.86 kg/(m^2). General: Alert and oriented, NAD Chest: CTA bilaterally CV: RRR, no m/r/g Gastrointestinal: soft, non tender, non distended, well healed prior incisions Extremities: WWP / Rectal: deferred ASSESSMENT AND PLAN: Sujata Iniguez is a 35 y.o. female who who presents in continued fo llow up for management of rectal prolapse - Patient still desires repair and is indicated. However, she only quit smoking 3 weeks ago and is therefore at significantly high risk for perioperative complications. At the genevieve of 2-3 weeks after quitting smoking the respiratory mucosal inflammatory response is at its gr eatest. We require that the patient be at least 4 weeks pre operatively without tobacco use to proceed with operative repair. - Will cancel case for tomorrow. Patient will call back when she has been not smoking for 4 weeks continuously to schedule repair. Ahsan Taylor MD [facility] Department of Surgery Pager: [phone], Marian Donahue MD - [phone] 1:00 PM PDT COLON AND RECTAL SURGERY Attending History and Physical Established Patient I have seen and examined the patient with the resident. I have repeated the critical porti ons of the history and exam. I discussed the case with the resident, agree with the histor y and findings, and formulated the plan as documented in the resident s note, with the fol lowing additions: Assessment: 35 y.o. female with childhood asthma, attention deficit hyperactivity disorder, and PTSD uterovaginal/bladder prolapse total vaginal hysterectomy, anterior colporrhaphy, posterior v plasty, transobturator tape (monarch) on 08/28/10 isolated rectal prolapse robotic low anterior resection (01/26/13) MR defecography (01/02/16) mild bladder descent no vaginal descent anorectal angles: rest 91, squeeze 56, valsalva 96, defecation 2.2 cm anterior rectocele without retention no enterocele rectal prolapse diarrhea of unknown origin Quit smoking 3 weeks ago. Plan: Cancel surgery Will need to reschedule for 4 weeks after she quits smoking. Chief Complaint: 35 y.o. female smoker with tissue falling out of her anus History of Present Illness: When I saw her on 01/01/16, I found out: "For uterovaginal and bladder prolapse, she underwent total vaginal hysterectomy, anterior colporrhaphy, posterior v plasty; transobturator tape (monarch) on 08/28/10. For rectal prolapse, she underwent a robotic low anterior resection (01/26/13). Her sympto ms recurred 3 months later. The bulge out of her rectum has enlarged over time. That requi res manual reduction several times a day. Nonbloody diarrhea: 5 times a day. Only see blo od when she wipes. Incontinent to loose stool 3-4 times in the last year, with little warn ing. Denies constipation. No tissue prolapses out of her vagina. Intermittent (1-2 times a week) difficulty with urination. Good urinary continence. She still smokes ~1-2 packs a day." On exam, I had found a 6-8 cm full thickness rectal p rolapse. I recommended: "MR defecography. Colonoscopy to evaluate diarrhea. Quit smoking." MRI defecography (01/02/16) mild 1.7 cm bladder descent below PCL no vaginal descent no enterocele or sigmoidocele anorectal angles rest 91, squeeze 56, valsalva 96, defecation 95 2.2 cm rectocele without retention rectal intussusception colonoscopy to cecum with "quite excellent" prep (04/02/16, by Dr. Ricki Ch) edema and erythema in distal rectum small polyps at hepatic flexure (tubular adenoma), 8 cm, and 4 cm (hyperplastic) random biopsies: prominent lymphoid nodule unable to retroflex in rectum For lower GI bleeding, she was transfused 6 units of PRBC and 3 units of platelets. emergent colonoscopy to hepatic flexure (04/06/16, by Dr. Ricki Ch) Nonbleeding polypectomy sites at 4 cam and 8 cm Bleeding from hepatic flexure polypectomy site -> clipped/injected with epinephrine She quit smoking at 3 weeks ago. She comes for a preop visit for her rectal prolapse. See resident note. Past Medical History: Diagnosis Date ADHD (attention deficit hyperactivity disorder) Childhood asthma PTSD (post-traumatic stress disorder) Rectal prolapse Uterovaginal prolapse OB History Para Term AB TAB SAB Ectopic Multiple Living 2 2 Obstetric Comments 2 vaginal deliveries, both with episiotomies First one weighed 7 lb 7 ounces. Tore a little. No forceps. Past Surgical History Procedure Laterality Date total vaginal hysterectomy, anterior colporrhaphy, posterior v plasty; transobturator tape (monarch) 08/28/2010 Robotic low anterior resection 01/26/2013 Allergies: No Known Allergies Current Outpatient Prescriptions Medication Sig BUPROPION HCL (WELLBUTRIN ORAL) Take 1 tablet by mouth once daily in the morning. Cholecalciferol, Vitamin D3, 5,000 unit oral tablet Take 5,000 Units by mouth once ugo y. CITALOPRAM HYDROBROMIDE (CELEXA ORAL) Take 1 tablet by mouth once daily in the morning. CYANOCOBALAMIN, VITAMIN B-12, (B-12 DOTS ORAL) Take 1 tablet by mouth once daily. DEXTROAMPHETAMINE/AMPHETAMINE (ADDERALL ORAL) Take 1 tablet by mouth two times daily. folic acid 1 mg oral tablet Take 1 mg by mouth once daily. LISDEXAMFETAMINE DIMESYLATE (VYVANSE ORAL) Take 1 tablet by mouth once daily in the mor hernan. LURASIDONE HCL (LATUDA ORAL) Take 1 tablet by mouth once daily at bedtime. metroNIDAZOLE 500 mg oral tablet Take 1 tablet with (8oz) glass of clear liquid at 1 pm , 2 pm and 11 pm the day before surgery. neomycin 500 mg oral tablet Take 2 tablets with (8oz) glass of clear liquid at 1 pm, 2 pm and 11 pm the day before surgery. No current facility-administered medications for this visit. Family History Problem Relation Cancer Father no colorectal cancer in family Psychiatry Father bipolar Pulmonary Father sleep apnea Social History Social History Marital status: Single Spouse name: getting Number of children: 2 Years of education: 13 Occupational History former customer service Social History Main Topics Smoking status: Current Every Day Smoker Packs/day: 1.50 Smokeless tobacco: Never Used Alcohol use Yes Comment: 4 times a year Drug use: Not on file Sexual activity: Yes Social History Narrative Engaged On disability Review of systems: See my HPI, resident HPI, and resident review of systems. All other sy stems reviewed and are negative. Physical exam: BP 107/77 | Pulse 70 | Temp (Src) 36.7 C (98.1 F) (Oral) | RR 16 | Ht 1 .727 m (5' 8") | Wt 71.2 kg (156 lb 14.4 oz) | BMI 23.86 kg/(m^2) General: well-developed, well-nourished female in NAD Mental Status: A&O x 4 Neurologic: moves all extremities well HEENT: anicteric sclera, EOMI Exam from 01/01/16 "Commode exam: 6-8 cm full thickness rectal prolapse Rectal: Deferred" With this established patient, I spent 46 minutes of [id number] time, of which more than half the time was spent in counseling. 20 minute document review do cumented in this encounter Plan of Treatment Not on filedocumented as of this encounter Visit Diagnoses + + | Diagnosis | + + | Rectal prolapse - Primary | + + documented in this encounter
--- OUTSIDE RECORDS SUMMARY | ~2018-07-05 | XMS | Encounter Summary ---
Demographics + + + | Address | [address] | | | [place] [address] | + + + | Home Phone | | + + + | Preferred Language | Unknown | + + + | Marital Status | Single | + + + | Sabianist Affiliation | NON | + + + | Race | White | + + + | Ethnic Group | Not or | + + + Author + + + | Author | [facility] | + + + | Organization | [facility] | + + + | Address | Unknown | + + + | Phone | Unavailable | + + + Support + + +---------+ + | Name | Relationship | Address | Phone | + + +---------+ + | Terrence Ortiz | ECON | Unknown | | + + +---------+ + Care Team Providers + +------+ + | Care Terminal Block Assembler Name | Role | Phone | + [...] | (Primary Dx) | | | | [facility] 4th Floor [address] | | | | | | [address] [place] Mail | | | | | | Code: [address] | | | | | | for Health and | | | | | | Healing,[address]th Floor | | | | | | [place], [place] | | | | | | [address] | | | | | | [phone] | | | +--------+---------+ + + + [...] + +--------+ + + | COMMUNICATION TO [facility] | Procedures | Routin | Preop examination | Ordered: 09/18/2016 | | LAB DRAW | | e | | | + + +--------+ + + documented as of this encounter Visit Diagnoses + + | Diagnosis | + + | Preop examination - Primary Preoperative examination, unspecified | + + documented in this encounter"
--- OUTSIDE RECORDS SUMMARY | ~2018-07-05 | XMS | Encounter Summary ---
Demographics + + + | Address | [address] | | | [place] [address] | + + + | Home Phone | | + + + | Preferred Language | Unknown | + + + | Marital Status | | + + + | Hoahaoism Affiliation | Unknown | + + + | Race | Unknown | + + + | Ethnic Group | Unknown | + + + Author + + + | Author | [facility] | + + + | Organization | [facility] | + + + | Address | Unknown | + + + | Phone | Unavailable | + + + Support + + +---------+ + | Name | Relationship | Address | Phone | + + +---------+ + | Terrence Ortiz | ECON | Unknown | | + + +---------+ + Care Team Providers + +------+ + | Care Visual Aid Expert Name | Role | Phone | + +------+ + | Kylah Monroe | PCP | | + +------+ + Reason for Visit + + + | Reason | Comments | + + + | Follow-up | ECHO / 2 month | + + + Encounter Details +--------+---------+ + + + | Date | Type | Department | Care Team | Description | +--------+---------+ + + + | 04/16/ | Office | [facility] | Angelita Mccallum DO | Orthostatic | | 2019 | Visit | [facility] [place] | [address] | hypotension (Primary | | | | [address] | [place] | Dx) | | | | [address] [address] | | | | | [place] [address] | | | | | | [phone] | | | +--------+---------+ + + + Social History + +-------+ +--------+------+ | Tobacco Use | Types | Packs/Day | Years | Date | | | | | Used | | + +-------+ +--------+------+ | Current Every Day | | | | | | Smoker | | | | | + +-------+ +--------+------+ + +---+---+---+ | Smokeless Tobacco: | | | | | Never Used | | | | + +---+---+---+ + + | Comments: pack and a half per day | + + + + +---------+ + | Alcohol Use | Drinks/We | oz/Week | Comments | | | ek | | | + + +---------+ + | Yes | | | rarely | + + +---------+ + + + + | Sex Assigned at | Date Recorded | | | | + + + | Not on file | | + + + as of this encounter Last Filed Vital Signs + + + + | Vital Sign | Reading | Time Taken | + + + + | Blood Pressure | 90/58 | 04/16/2018 10:28 AM PST | + + + + | Pulse | 85 | 04/16/2018 10:28 AM PST | + + + + | Temperature | - | - | + + + + | Respiratory Rate | - | - | + + + + | Oxygen Saturation | 98% | 04/16/2018 10:28 AM PST | + + + + | Inhaled Oxygen | - | - | | Concentration | | | + + + + | Weight | 74.8 kg (165 lb) | 04/16/2018 10:28 AM PST | + + + + | Height | 172.7 cm (5' 8") | 04/16/2018 10:28 AM PST | + + + + | Body Mass Index | 25.09 | 04/16/2018 10:28 AM PST | + + + + in this encounter Progress Notes Angelita Mccallum DO - 04/16/2018 10:40 AM PSTFormatting of this note may be different from rani kulkarni. [facility] Cardiology Cardiology Follow Up Note Reason for Consultation: syncope Requesting Physician: Kylah Monroe History Obtained From: patient HISTORY OF PRESENT ILLNESS: Cardiac Problem List Non Cardiac Problem List DDD- with chronic back pain Nicotine dependence History pelvic floor surgery Mrs. Iniguez is a 37-year-old female who presents to the Cardiology office for initial cons ultation regarding episodes of syncope and collapse. The patient reports that she has had e pisodes of presyncope when she was 16 years old. Starting 6 months ago, she has had 2 episo tahir of passing out. The first time, she got up from bed to go to the bathroom and lost cons ciousness. Her fiance was with her at that time and reported that she was out for 10 to 15 seconds. He noted some clonic movements during this episode. During the second episode, sh e got up from bed and started making coffee, she felt hot and shaky and then passed out and hit her head. She denies losing control of her bowel or bladder during these episodes. She denies any tongue biting during these episodes. Lately, she has noticed episodes of pre-sy ncope, which occurred 3-4 times per day. She describes it as a tingling sensation at the to p of her head associated with some sweatiness, lightheadedness, nausea, leg weakness, and tu nnel vision. The episodes usually last for about 1 minute. She denies any palpitations or chest pains associated with the episode. She admits to some shortness of breath with these episodes as well. She has been prescribed clonidine, which was started about 8 months ago p er the patient. She was taking 0.2 mg twice a day. She quit taking this medication about a week ago. The patient reports that she wore a 48-hour Holter monitor after her symptoms we re originally reported. She denies having any of the typical syncopal or pre-syncopal episo tahir while she was wearing this monitor. The patient is a current kgxe-zjt-yhlr-a-day smoker. We discussed smoking cessation. She has tried taking Chantix in the past. We discussed taking nicotine supplements including ni cotine patch with intermittent nicotine gum use. She is interested in trying this. Interim History At last visit, we ordered a one week event monitor and an echocardiogram. Her echo was done on 02/19/18 which was normal. Her event monitor was normal as well. She had symptoms of palpi tations, chest pain, one unspecified symptom that correlated with normal sinus rhythm. Since her last visit, the patient reports that she continues to have issues with presyncope . She hasn't had any syncopal episodes. They are worse in the morning. She tried to start dr inking more water, but she has a very difficult time creasing her water intake. We discussed trying G2 or other drinks that can help hydrate her. Now, she is mainly drinking just coffe e and soda. She has not tried wearing compression stockings for symptom relief. She has not been very active since we last saw each other. Review of Systems Constitutional: positive for fatigue. HENT: Negative for nosebleeds. Eyes: Negative for visual disturbance. Respiratory: Positive for cough Cardiovascular: Negative for chest pain, palpitations. She has chronic left leg swelling ?l ymphedema from prior pelvic sx Gastrointestinal: Negative for vomiting, abdominal pain and blood in stool. Genitourinary: Negative for hematuria or dysuria. Musculoskeletal: Negative for myalgias and arthralgias. She has back pain. Skin: Negative for color change. Neurological: Negative for numbness. Hematological: Does not bruise/bleed easily. Psychiatric/Behavioral: The patient is not nervous/anxious. PAST MEDICAL & SURGICAL HISTORY Past Medical History Diagnosis Date Bulge of lumbar disc without myelopathy Bulging lumbar disc Chronic low back pain with right-sided sciatica Facet arthritis of lumbar region (HCC) Mastodynia of left breast Nicotine dependence Continuing. Radiculopathy of lumbar region Rectal prolapse Spondylosis of lumbar region without myelopathy or radiculopathy Syncope and collapse Past Surgical History Procedure Laterality Date COLONOSCOPY HYSTERECTOMY 08/2010 INCONTINENCE SURGERY 08/2010 OTHER SURGICAL HISTORY pelvic floor reconstruction 08/2010 RECTAL PROLAPSE REPAIR 01/2013 MEDICATIONS Home Medications Outpatient Encounter Prescriptions as of 04/16/2018 Medication Sig Dispense Refill Cholecalciferol (VITAMIN D3) 2000 units TABS Take by mouth 2 (two) times daily. Cyanocobalamin (VITAMIN B 12 PO) Take 1,000 mcg by mouth. Levomefolate Glucosamine (METHYLFOLATE PO) Take 50 mg by mouth. No facility-administered encounter medications on file as of 04/16/2018. Allergies Not on File FAMILY HISTORY Family History Problem Relation Age of Onset Cancer Mother Hypertension Father SOCIAL HISTORY Social History Social History Marital status: Spouse name: N/A Number of children: N/A Years of education: N/A Occupational History Not on file. Social History Main Topics Smoking status: Current Every Day Smoker Smokeless tobacco: Never Used Comment: pack and a half per day Alcohol use Yes Comment: rarely Drug use: No Sexual activity: Not on file Other Topics Concern Not on file Social History Narrative No narrative on file PHYSICAL EXAM Vital Signs: BP 90/58 (BP Location: Right upper arm, Patient Position: Sitting) | Pulse 85 | Ht 1.727 m (5' 8") | Wt 74.8 kg (165 lb) | SpO2 98% | BMI 25.09 kg/m Previous Orthostatic vital signs Laying 88/60 pulse 94 Sitting 82/60 pulse 111 Standing 82/62 pulse 118 Physical Exam GENERAL: Well developed, well nourished, in no distress. Appears approximately stated age . HEENT: Normocephalic, atraumatic. EYES: PERRL, sclerae anicteric, no xanthelsasmas MOUTH: Oral mucosae moist, dentition adequate, no lesions noted NECK: No JVD, lymphadenopathy, thyromegaly, bruits. Carotid pulses are 2+ bilaterally LUNGS: Clear bilaterally, with no rales, rhonchi or wheezing noted, respirations unlabored HEART: Nondisplaced PMI, regular rate and rhythm, S1, S2 normal. No murmurs, rubs or gall ops noted. ABDOMEN: Soft, nontender, no organomegaly, masses or bruits. Bowel sounds are normal in a ll 4 quadrants. The abdominal aortic pulsation is not palpable. EXTREMITIES: No edema. Radial pulses 2+ bilaterally. Femoral pulses are 2+ bilaterally wi thout bruits. DP and PT pulses are 2+ bilaterally. SKIN: Warm and dry, capillary refill is normal, no lesions. NEUROLOGIC: Awake, alert and oriented x 3. No focal motor deficits. PSYCHIATRIC: Appropriate, affect appears normal DATA Blood work from 07/10/17 reviewed including total cholesterol of 167, triglycerides 74, HDL 50, LDL 102, sodium 140, potassium 4.2, chloride 106, carbon dioxide 21, glucose 96, B1 11, creatinine 0.77, calcium 9.3, AST 11, ALTs 8, alkaline phosphatase 52, total bilirubin 0.4, total protein 6.5, white blood cell count 9.3, hemoglobin 14.8, hematocrit 43.6, platelet co unt 284, TSH 1.16 EK02/05/18 ordered and reviewed by myself normal sinus rhythm 96 bpm, normal EKG 08/19/17 normal sinus rhythm 61 bpm some early repolarization changes, normal EKG Echo 02/19/18 Impression 1. The left ventricle is normal in size, wall thickness and systolic function EF 60-65%. 2. The right ventricle is normal in size and function. 3. Mild tricuspid regurgitation present. 4. There is no pericardial effusion. Event monitor 02/19/18 Impressions: 1: Sinus, as described above. 2: No clinically significant arrhythmias occurred during monitoring 3: No AV conduction abnormalities detected. 4: No ischemia detected. 5:Symptoms of "palpitations, chest discomfort, and one unspecified symptoms", associated wi th normal sinus rhythm. ASSESSMENT & PLAN 1. Syncope 2. Orthostatic Hypotension 3. Tobacco Habituation - Mrs. Iniguez is a 37-year-old female who presents to the cardiology office for followup r egarding syncope. The patient has baseline low blood pressures. She also had positive orthos tatic vital signs with heart rate jumping from 94 to 118 bpm on laying to standing. We order ed a one week event monitor and and echocardiogram which were both normal. - She was advised to increase her salt and fluid intake - She was advised to try wearing compression stockings - She was encouraged to stay active - She continues to smoke, she was encouraged to continue efforts at smoking cessation. - Follow up in 3 months Thank you for allowing me to participate in the care of this patient. Primary Care Physician: Kylah Mccallum DO 04/16/2018in this encounter Plan of Treatment +--------+---------+ + + + | Date | Type | Specialty | Care Team | Description | +--------+---------+ + + + | 10/08/ | Office | Cardiology | Angelita Mccallum DO | | | 2018 | Visit | | [address] | | | | | | [place], [place] | | | | | | [address] | | | | | | | | +--------+---------+ + + + as of this encounter Visit Diagnoses + + | Diagnosis | + + | Orthostatic hypotension - Primary | + +
--- OUTSIDE RECORDS SUMMARY | ~2018-07-05 | XMS | Clinical Summary ---
Demographics + + + | Address | [address] | | | [place] [address] | + + + | Home Phone | | + + + | Preferred Language | Unknown | + + + | Marital Status | | + + + | Sabianism Affiliation | Unknown | + + + | Race | Unknown | + + + | Ethnic Group | Unknown | + + + Author + + + | Author | [facility] | + + + | Organization | [facility] | + + + | Address | Unknown | + + + | Phone | Unavailable | + + + Support + + +---------+ + | Name | Relationship | Address | Phone | + + +---------+ + | Terrence Ortiz | ECON | Unknown | | + + +---------+ + Care Team Providers + +------+ + | Care Certified Dialysis Technician Name | Role | Phone | + +------+ + | Kylah Monroe | PP | | + +------+ + Allergies Not on File Current Medications + + +--------+---------+------+------+-------+ | Prescription | Sig. | Disp. | Refills | Star | End | Statu | | | | | | t | Date | s | | | | | | Date | | | + + +--------+---------+------+------+-------+ | Cyanocobalamin | Take 1,000 mcg by | | | | | Activ | | (VITAMIN B 12 PO) | mouth. | | | | | e | + + +--------+---------+------+------+-------+ | Levomefolate | Take 50 mg by mouth. | | | | | Activ | | Glucosamine | | | | | | e | | (METHYLFOLATE PO) | | | | | | | + + +--------+---------+------+------+-------+ | Cholecalciferol | Take by mouth 2 | | | | | Activ | | (VITAMIN D3) 2000 | (two) times daily. | | | | | e | | units TABS | | | | | | | + + +--------+---------+------+------+-------+ | | Take 1 tablet by | | | | | Activ | | HYDROcodone-acetamin | mouth every 6 (six) | | | | | e | | ophen (NORCO) | hours as needed for | | | | | | | 7.5-325 MG per | Pain. | | | | | | | tablet | | | | | | | + + +--------+---------+------+------+-------+ | cyclobenzaprine | Take 10 mg by mouth | | 0 | 04/2 | | Activ | | (FLEXERIL) 10 MG | daily. | | | 2/20 | | e | | tablet | | | | 19 | | | + + +--------+---------+------+------+-------+ | midodrine | Take 0.5 tablets by | 90 | 3 | 05/ | 07/18 | Activ | | (PROAMATINE) 5 MG | mouth 3 (three) | tablet | | 6/20 | 5/20 | e | | tablet | times daily for 30 | | | 19 | 19 | | | | days. | | | | | | + + +--------+---------+------+------+-------+ Active Problems + + + | Problem | Noted Date | + + + | Near syncope | 07/25/2017 | + + + | Syncope | 07/25/2017 | + + + | Bulge of lumbar disc without myelopathy | 06/25/2016 | + + + | Chronic low back pain with right-sided sciatica | 06/25/2016 | + + + | Facet arthritis of lumbar region | 06/25/2016 | + + + | Lumbar radiculopathy | 06/25/2016 | + + + | Spondylosis of lumbar region without myelopathy or radiculopathy | 06/25/2016 | + + + | Rectal prolapse | 02/20/2016 | + + + Encounters +--------+ + + + + | Date | Type | Specialty | Care Team | Description | +--------+ + + + + | 07/02/ | Office | | Angelita Mccallum DO | Syncope, unspecified | | 2019 | Visit | | | syncope type | | | | | | (Primary Dx); | | | | | | Orthostatic | | | | | | hypotension; Tobacco | | | | | | dependency | +--------+ + + + + | 06/25/ | Documentati | | Keyonna Meier CMA | Other (Referral for | | 2019 | on Only | | | Neurosurgery from | | | | | | [facility] | | | | | | Medicine 06/24/18) | +--------+ + + + + | 04/16/ | Office | | Angelita Mccallum DO | Orthostatic | | 2019 | Visit | | | hypotension (Primary | | | | | | Dx) | +--------+ + + + + from Last 3 Months Family History + + +------+ + | Medical History | Relation | Name | Comments | + + +------+ + | Hypertension | Father | | | + + +------+ + | Cancer | Mother | | | + + +------+ + + +------+--------+ + | Relation | Name | Status | Comments | + +------+--------+ + | Father | | Alive | | + +------+--------+ + | Mother | | Alive | | + +------+--------+ + Social History + +-------+ +--------+------+ | [...] on file | | + + + Last Filed Vital Signs + + + + | Vital Sign | Reading | Time Taken | + + + + | Blood Pressure | 96/62 | 07/02/2018 11:23 AM PDT | + + + + | Pulse | 108 | 07/02/2018 11:23 AM PDT | + + + + | Temperature | - | - | + + + + | Respiratory Rate | - | - | + + + + | Oxygen Saturation | 98% | 07/02/2018 11:23 AM PDT | + + + + | Inhaled Oxygen | - | - | | Concentration | | | + + + + | Weight | 76.8 kg (169 lb 4.8 | 07/02/2018 11:23 AM PDT | | | oz) | | + + + + | Height | 172.7 cm (5' 8") | 07/02/2018 11:23 AM PDT | + + + + | Body Mass Index | 25.74 | 07/02/2018 11:23 AM PDT | + + + + Plan of Treatment +--------+---------+ + + + | Date | Type | Specialty | Care Team | Description | +--------+---------+ + + + | 10/08/ | Office | | Angelita Mccallum DO | | | 2019 | Visit | | [address] | | | | | | [place] | | | | | | [address] | | | | | | | [...] | + + + + + | Cervical Cancer | | | | | Screening (Pap) | 0 | | | + + + + + | Vaccine: Influenza | | | | | (Season Ended) | 9 | | | + + + + + Results Not on filefrom Last 3 Months Insurance + +--------+ +------+-------+ + | Payer | Benefi | Subscriber | Type | Phone | Address | | | t Plan | ID | | | | | | / | | | | | | | Group | | | | | + +--------+ +------+-------+ + | MEDICARE | MEDICA | [id number] | | | [address] | | | RE | | | | [place] [phone] | | | IP-OP | | | | | + +--------+ +------+-------+ + | MEDICAID | MEDICA | [id number] | | | [address] | | | ID | | | | [place] | | | [place] | | | | [phone] | + +--------+ +------+-------+ + + +--------+ +--------+ + + | Guarantor Name | Accoun | Relation to | Date | Phone | Billing Address | | | t Type | Patient | of | | | | | | | | | | + +--------+ +--------+ + + | SETH INIGUEZ | Person | Self [birth year] Home: | [address] | | | al/Fam | | 1981 | [phone] [address] [place] | | | [place] | | [phone] | + +--------+ +--------+ + +
--- OUTSIDE RECORDS SUMMARY | ~2018-07-05 | XMS | Clinical Summary ---
Demographics + + + | Address | [address] | | | [place] [address] | + + + | Home Phone | | + + + | Preferred Language | Unknown | + + + | Marital Status | Unknown | + + + | Muslim Affiliation | Unknown | + + + | Race | Unknown | + + + | Ethnic Group | Unknown | + + + Author + + + | Author | [facility] | | | and [place] | + + + | Organization | [facility] | | | and [place] | + + + | Address | Unknown | + + + | Phone | Unavailable | + + + Support + + + + + | Name | Relationship | Address | Phone | + + + + + | Terrence Ortiz | ECON | [place] | | | | | [address] | | + + + + + Care Team Providers + +------+ + | Care [facility] [employer] Name | Role | Phone | + [...] [place] | | | | | [place] [address] | | | | | | [phone] | | | | | | | [...] +--------+ +---------+--------+ | MEDICARE | MEDICA | [id number] | | [phone] | | Medica | | | RE | | 004-Pr | 5 | | re | | | PART A | | esent | | | | | | AND B | | | | | | + +--------+ +--------+ +---------+--------+ | MEDICARE | MEDICA | [id number] | | [phone] | | Medica | | | RE | | 004-Pr | 5 | | re | | | PART A | | esent | | | | | | AND B | | | | | | + +--------+ +--------+ +---------+--------+ | MEDICAID [place] | MEDICA | [id number] | | [phone] | | [place] | | | [place] | | 017-Pr | 2 | | id | | | PLUS | | esent | | | | + +--------+ +--------+ +---------+--------+ | MEDICAID [place] | MEDICA | [id number] | 07/24/19 | [phone] | | Medica [...] [place] | | | 7 (Home) | [phone] | + +--------+ +--------+ + + | Sujata Iniguez | Person | Self | [birth year] | [address] | | | al/Fam | | 1980 | | [address] [place], [place] | | | [place] | | | [address] (Home) | [phone] | + +--------+ +--------+ + + Advance Directives Patient has advance care planning documents on file. For more information, please contact:[facility] [address]
--- OUTSIDE RECORDS SUMMARY | ~2018-07-05 | XMS | Encounter Summary ---
Demographics + + + | Address | [address] | | | [place] [address] | + + + | Home Phone [...] + + + | Author | [facility] | + + + | Organization | [facility] | + + + | Address | Unknown | + + + | Phone | Unavailable | + + + Support + + +---------+ + | Name | Relationship | Address | Phone | + + +---------+ + | Terrence Ortiz | ECON | Unknown | | + + +---------+ + Care Team Providers + +------+ + | Care Kettle Fry Cook Operator Name | Role | Phone | + +------+ + | Kylah Monroe | PCP | | + +------+ + Reason for Referral Diagnostic Testing (Urgent) +--------+--------+ + + + + | Status | Reason | Specialty | Diagnoses / | Referred By | Referred To | | | | | Procedures | Contact | Contact | +--------+--------+ + + + + | Closed | | Radiology | Diagnoses | Marian Huang, | | | | | | Rectal | MD [address] | | | | | | prolapse | [address] | | | | | | Procedures | [address] | | | | | | MRI PELVIS | [facility] [place] | | | | | | WO CONTRAST | [address] | | | | | | | Phone: | | | | | | | [phone] | | | | | | | Fax: | | | | | | | [phone] | | +--------+--------+ + + + + Reason for Visit + + + | Reason | Comments | + + + | New patient | | | consultation | | + + + | Rectal prolapse | | + + + Consultation (Routine) +--------+--------+ + + + + | Status | Reason | Specialty | Diagnoses / | Referred By | Referred To | | | | | Procedures | Contact | Contact | +--------+--------+ + + + + | Closed | | Surgery | Diagnoses | Michelle, | Dontae, | | | | | Rectal | Paulino Rivero MD | Júnior Harp MD | | | | | prolapse | [facility] | [address] | | | | | | [facility] | [facility] | | | | | | [facility] | [address] [place], | | | | | | [address] | [place] | | | | | | [facility] | [address] | | | | | | [place], | Phone: | | | | | | [place] [address] | [phone] | | | | | | Phone: | Fax: | | | | | | [phone] | [phone] | | | | | | Fax: | | | | | | | [phone] | | +--------+--------+ + + + + Encounter Details +--------+---------+ + + + | Date | Type | Department | Care Team | Description | +--------+---------+ + + + | 12/31/ | Office | Digestive Health | Marian Huang MD | Rectal prolapse | | 2016 | Visit | Center at [facility] [address] | [address] | (Primary Dx) | | | | [address] | [address] [place], | | | | | Mailcode: [place] | [place] [address] | | | | | for Health and | [phone] | | | | | [facility] [address] | | | | | | [place], [place] | | | | | | [address] | | | | | | [phone] | | | +--------+---------+ + + + [...] + + + | Blood Pressure | 123/85 | 01/01/2016 1:07 PM | | | | | PST | | + + + + + | Pulse | 109 | 01/01/2016 1:07 PM | | | | | PST | | + + + + + | Temperature | 36.8 C (98.2 F) | 01/01/2016 1:07 PM | | | | | PST | | + + + + + | Respiratory Rate | 16 | 01/01/2016 1:07 PM | | | | | PST | | + + + + + | Oxygen Saturation | - | - | | + + + + + | Inhaled Oxygen | - | - | | | Concentration | | | | + + + + + | Weight | 71.7 kg (158 lb) | 01/01/2016 1:07 PM | | | | | PST | | + + + + + | Height | 171.5 cm (5' 7.5") | 01/01/2016 1:07 PM | | | | | PST | | + + + + + | Body Mass Index | 24.38 | 01/01/2016 1:07 PM | | | | | PST | | + + + + + documented in this encounter Patient Instructions Patient Instructions Marian Huang MD - 01/01/2016 1:00 PM PSTRectal prolapse Other pelvic floor prolapse? Diarrhea of unknown origin? MR defecography. Colonoscopy to evaluate diarrhea. Quit smoking. Further recommendations to follow. documented in this encounter Progress Notes Danelle Melgar MA - 01/01/2016 1:00 PM PSTExamination chaperoned by Danelle Doshi CMA. Marian Carlton MD - 01/01/2016 1:00 PM PST COLON AND RECTAL SURGERY Attending History and Physical New Patient I have seen and examined the [...] enterocele rectal prolapse diarrhea of unknown origin still smokes ~1-2 packs a day Plan: MR defecography. Colonoscopy to evaluate diarrhea. Quit smoking. Further recommendations to follow. Chief Complaint: 35 y.o. female smoker with tissue falling out of her anus History of Present Illness: For uterovaginal and bladder prolapse, she underwent total vaginal hysterectomy, anterior c olporrhaphy, posterior v plasty; transobturator tape (monarch) on [...] continence. She still smokes ~1-2 packs a day. She was referred to discuss treatment options for her rectal prolapse. See resident note. Past Medical History Diagnosis Date ADHD (attention deficit hyperactivity disorder) [...] tablet by mouth once daily at bedtime. No current facility-administered medications for this visit. [...] Narrative Engaged On disability Review of systems: Lost 75 lbs in a month in August or September,. Subjective fevers or ch ills. No cough, shortness of breath, chest pain, chest pressure, or abdominal pain. No dys pareunia. See my HPI, resident HPI, and resident review of systems. All other systems revi ewed and are negative. Physical exam: RR 16 | Ht 1.715 m (5' 7.5") | Wt 71.7 kg (158 lb) | BMI 24.38 kg/(m^2) General: well-developed, well-nourished female in NAD Mental Status: A&O x 4 Neurologic: moves all extremities well HEENT: anicteric sclera, EOMI, no facial sinus tenderness, oropharynx benign Neck: supple, no LAD, no thyromegaly Lungs: clear to auscultation bilaterally Heart: regular rate and rhythm Abd: soft, well-healed lower midline extraction and other trocar sites, mild LLQ tenderness , nondistended Back: no spinal or costovertebral tenderness Groins: no inguinal lymphadenopathy Vascular: 2+ femoral pulses Extremities: no calf tenderness, no clubbing/cyanosis/edema Commode exam: 6-8 cm full thickness rectal prolapse Rectal: deferred With this New Referral patient, I spent 32 minutes of sgmy-no-ialf time, of which more than half the time was spent in counseling. 32 minute document review Nat Victor MD - 01/01/2016 1:00 PM PSTFormatting of this note might be different from t fransisca original. COLORECTAL SURGERY CLINIC HISTORY AND PHYSICAL OFFICE VISIT DATE OF VISIT: 01/01/2016 REFERRING PROVIDER: Paulino Martinez MD REASON FOR VISIT: Recurrent rectal prolapse HISTORY: Sujata Ingiuez is a(n) 35 y.o. female with history of recurrent rectal prolaps e s/p pelvic floor reconstruction with hysterectomy and bladder suspension in 08/2010 RAL-lo w anterior resection 01/26/2013. By January 2014 she had complete recurrence of her symptoms including large bulge with sit ting and squatting that has been increasingly difficult to reduce. She has mucus per rectum and incontinence with diarrhea about 5x daily. Occasionally sees blood when she wipes but de nies seeing blood in actual stool. She denies incontinence of urine although endorses a few incidences of difficulty voiding associated with episodes of rectal prolapse. Denies any rec urrent bulge in her vagina. Is sexually active and denies dyspareunia. Denies any previous c olonoscopies for her prolapse. She has had two vaginal deliveries in 2004 and 2006 with episiotomies in both deliveries. T he first baby was 7lb 7oz. The second delivery was complicated by prolonged bleeding and pos sible dystocia requiring extraction using both hands (no forceps). Her diet is low in fiber. Denies history of or current constipation. She continues to smoke 1.5 packs a day. She has tried to quit but it is difficult due to he r psych issues. She presents today with her fiancee who seems very supportive, especially of her smoking cessation. Past Medical History Diagnosis Date ADHD (attention deficit hyperactivity disorder) Childhood asthma PTSD (post-traumatic stress disorder) Rectal prolapse Uterovaginal prolapse Past Surgical History Procedure Laterality Date total vaginal hysterectomy, anterior colporrhaphy, posterior v plasty; transobturator tape (monarch) 08/28/2010 Robotic low anterior resection 01/26/2013 Current Outpatient Prescriptions Medication Sig BUPROPION HCL [...] tablet by mouth once daily at bedtime. No current facility-administered medications for this visit. Allergies No Known Allergies Family History Problem Relation Cancer Father no colorectal cancer in family Psychiatry Father bipolar Pulmonary Father sleep apnea Social History Social History Marital status: Single Spouse name: getting Number of children: 2 Years of education: 13 Occupational History former [employer] service Social History Main Topics Smoking status: Current Every Day Smoker Packs/day: 1.50 Smokeless tobacco: Never Used Alcohol use Yes Comment: 4 times a year Drug use: Not on file Sexual activity: Yes Other Topics Concern Not on file Social History Narrative Engaged On disability REVIEW OF SYSTEMS: 75lb unintentional weight loss summer. All other systems review ed and negative except as noted above. PHYSICAL EXAMINATION: BP 123/85 | Pulse 109 | Temp (Src) 36.8 C (98.2 F) (Oral) | RR 16 | Ht 1.715 m (5' 7.5" ) | Wt 71.7 kg (158 lb) | BMI 24.38 kg/(m^2) GENERAL: Well nourished, well developed female in no acute distress, alert and oriented x 3 HEENT: Grossly within normal limits. NECK: Supple, no adenopathy, full range of motion. CARDIOVASCULAR: RRR, no MDR Lungs: CTAB with very occasional end-respiratory wheezing ABDOMEN: Soft, nondistended, previous midline and trocar incisions well-healed. Some LLQ t enderness. Commode: ~6cm full-thickness rectal prolapse with sitting and mild straining GROINS/: No hernias noted. EXTREMITIES: No edema, full range of motion. NEUROLOGIC: Moves all extremities spontaneously. No apparent neurologic deficits. Cranial nerves 2-12 grossly intact. IMPRESSION: Sujata Iniguez is a(n) 35 y.o. female with history of recurrent rectal prola pse s/p pelvic floor reconstruction with hysterectomy and bladder suspension in 08/2010 RAL- low anterior resection 01/26/2013. We discussed that diarrhea with rectal prolapse is not ty pical and would like to further work up causes of the diarrhea. Also discussed that given he r previous history of prolapse she could have an occult prolapse that would change surgical management. Lastly she has already had one recurrence and to maximize her chance of success she needs to quit smoking for 4 weeks before her surgery. PLAN: - MR defecography to workup other organ prolapse - Smoking cessation - Colonoscopy to work up other possible causes of diarrhea - Follow up in clinic to discuss surgery Nat Zamudio MD [facility] GENERAL SURGERY [facility] 6TH FLOOR [address] [place] [phone] documented in this encounte r Plan of Treatment Not on filedocumented as of this encounter Results MRI PELVIS WO CONTRAST (01/02/2016 10:30 AM PST) + + + + + + | Component | Value | Ref Range | Performed | Pathologist | | | | | At | Signature | + + + + + + | MR PELVIS | MRI Pelvis WO (Pelvic | | | | | WO CONTRAST | Floor/Defecography) | | | | | | INDICATION: 35 year | | | | | | female with history | | | | | | recurrent rectal | | | | | | prolapse status | | | | | | postpelvic floor | | | | | | reconstruction with | | | | | | hysterectomy and bladder | | | | | | suspension, as wellas | | | | | | low anterior resection. | | | | | | TECHNIQUE: 180mL of | | | | | | sonography gel was | | | | | | placed in the | | | | | | rectum. Static | | | | | | anddynamic imaging of | | | | | | the pelvis was performed | | | | | | without | | | | | | intravenous contrast. | | | | | | Dynamic imaging using | | | | | | rapid steady state free | | | | | | precession sequences | | | | | | done duringrest, | | | | | | squeeze, valsalva, and | | | | | | defecation. FINDINGS: | | | | | | ANTERIOR COMPARTMENT: | | | | | | AbnormalBladder Descent: | | | | | | Yes; 1.7cm below PCL; | | | | | | Grade:MildUrethra: | | | | | | Hypermobile (horiztonal | | | | | | orientation) MIDDLE | | | | | | COMPARTMENT: Surgically | | | | | | absent uterus. No | | | | | | descent below the PCL. | | | | | | POSTERIOR | | | | | | COMPARTMENT:Anorectal | | | | | | angles:Rest: 91Squeeze: | | | | | | 56Valsalva: 96, with | | | | | | demonstration of bowel | | | | | | incontinence.Defecation: | | | | | | 95 | | | | | | Rectocele: PresentLoc | | | | | | ation: | | | | | | AnteriorSize: 2.2 cm; | | | | | | Grade: | | | | | | ModerateRetention: No | | | | | | Rectal Intussusception: | | | | | | Present; intraanal | | | | | | intussusception with | | | | | | full thicknessdescent of | | | | | | anterior and posterior | | | | | | tissue into the anal | | | | | | canal after | | | | | | completeevacuation. | | | | | | Retention after | | | | | | defecation: Small Pouch | | | | | | of Car: No | | | | | | enterocele or other | | | | | | space occupying lesion. | | | | | | Other: Puborectalis | | | | | | muscle is symmetric and | | | | | | normal in | | | | | | bulk. Levator | | | | | | animuscles are | | | | | | symmetric. H-line | | | | | | length: At rest 7.9cm. | | | | | | During defecation 7.8cm | | | | | | Grade:MildM-line: At | | | | | | rest 1.3cm. During | | | | | | defecation 3.1cm. | | | | | | Grade:Mild | | | | | | Definitions:PCL: | | | | | | Inferior border of pubic | | | | | | symphysis to last | | | | | | coccygeal | | | | | | jointH-line: Inferior | | | | | | border of pubic | | | | | | symphysis to posterior | | | | | | border of anorectal | | | | | | jxnM-line: Drawn | | | | | | perpendicular to PCL | | | | | | to posterior end of | | | | | | H-line IMPRESSION: 1. | | | | | | Mildly abnormal | | | | | | anorectal angles, with | | | | | | failure to increase | | | | | | duringdefecation, | | | | | | findings which may seen | | | | | | in the setting of | | | | | | puborectalis | | | | | | dyssynergia. 2. Small | | | | | | rectocele measuring up | | | | | | to 2.2 cm. 3. Mild | | | | | | bladder descent, | | | | | | measuring up to 1.7 cm | | | | | | below the PCL. 4. | | | | | | Intra-anal | | | | | | intussusception with | | | | | | full thickness descent | | | | | | of anterior andposterior | | | | | | tissues into the anal | | | | | | canal after evacuation. | | | | | | 5. Nearly complete | | | | | | evacuation with small | | | | | | residual. Attending | | | | | | Radiologists: TON | | | | | | SANFORD ROMEROuthor: ALLIE | | | | | | MD SERGO I personally | | | | | | reviewed the images and, | | | | | | if necessary, edited | | | | | | the report. I agreewith | | | | | | the report as now | | | | | | presented. | | | | | | Final/Electronically | | | | | | signed / TON | | | | | | FOSTER 01/03/2016 15:57 | | | | | | PM Pending final | | | | | | approval / ALLIE | | | | | | SERGO 01/03/2016 10:01 | | | | | | AM Preliminary / | | | | | | ALLIE TROTTER 01/02/2016 | | | | | | 13:05 PM | | | | + + + + + + + + | Specimen | + + | | + + + +---------+ + + | Performing | Address | City/State/Zipcode | Phone Number | | Organization | | | | + +---------+ + + | [facility] OF | | | | | RADIOLOGY | | | | + +---------+ + + documented in this encounter Visit Diagnoses + + | Diagnosis | + + | Rectal prolapse - Primary | + + documented in this encounter
--- OUTSIDE RECORDS SUMMARY | ~2018-07-05 | XMS | Encounter Summary ---
Demographics + + + | Address | [address] | | | [place] [address] | + + + | Home Phone | | + + + | Preferred Language | Unknown | + + + | Marital Status | Single | + + + | Bahai Affiliation | NON | + + + | Race | White | + + + | Ethnic Group | Not or | + + + Author + + + | Author | [facility] | + + + | Organization | [facility] | + + + | Address | Unknown | + + + | Phone | Unavailable | + + + Support + + +---------+ + | Name | Relationship | Address | Phone | + + +---------+ + | Terrence Ortiz | ECON | Unknown | | + + +---------+ + Care Team Providers + +------+ + | Care Attendant Campground Name | Role | Phone | + +------+ + | Kylah Monroe | PCP | | + +------+ + Reason for Visit +--------+ + | Reason | Comments | +--------+ + | Other | Surgery Postponed | +--------+ + Encounter Details +--------+ + + + + | Date | Type | Department | Care Team | Description | +--------+ + + + + | 07/24/ | Telephone | Digestive Health | Marian Huang MD | Other (Surgery | | 2017 | | [place] [address] [address] | [address] | Postponed) | | | | [address] | [address] [place], | | | | | Mailcode: [facility] [address] | | | | | for Health and | [phone] | | | | | [facility] [address] | | | | | | [place], [place] | | | | | | [address] | | | | | | [phone] | | | +--------+ + + + [...] filedocumented as of this encounter Visit Diagnoses Not on filedocumented in this encounter"
--- OUTSIDE RECORDS SUMMARY | ~2018-07-05 | XMS | Encounter Summary ---
Demographics + + + | Address | [address] | | | [place] [address] | + + + | Home Phone | | + + + | Preferred Language | Unknown | + + + | Marital Status | Single | + + + | Shinto Affiliation | NON | + + + | Race | White | + + + | Ethnic Group | Not or | + + + Author + + + | Author | [facility] | + + + | Organization | [facility] | + + + | Address | Unknown | + + + | Phone | Unavailable | + + + Support + + +---------+ + | Name | Relationship | Address | Phone | + + +---------+ + | Terrence Ortiz | ECON | Unknown | | + + +---------+ + Care Team Providers + +------+ + | Care Straight Ruling Machine Operator Name | Role | Phone | + +------+ + | Kylah Monroe | PCP | | + +------+ + Reason for Visit + + + | Reason | Comments | + + + | Outside Records | Colonoscopy | | Received | | + + + Encounter Details +--------+ + + + + | Date | Type | Department | Care Team | Description | +--------+ + + + + | 04/11/ | Abstract | Digestive Health | Marian Huang MD | Outside Records | | 2017 | | Center at [facility] [address] | [address] | Received | | | | [address] | [address] [place], | ([facility] ) | | | | Mailcode: [place] | [place] [address] | | | | | for Health and | [phone] | | | | | [facility] 2 | | | | | | [place], [place] | | | | | | [address] | | | | | | [phone] | | | +--------+ + + + [...]
--- OUTSIDE RECORDS SUMMARY | ~2018-07-05 | XMS | Encounter Summary ---
Demographics + + + | Address | [address] | | | [place] [address] | + + + | Home Phone | | + + + | Preferred Language | Unknown | + + + | Marital Status | Single | + + + | Orthodox Affiliation | NON | + + + | Race | White | + + + | Ethnic Group | Not or | + + + Author + + + | Author | [facility] | + + + | Organization | [facility] | + + + | Address | Unknown | + + + | Phone | Unavailable | + + + Support + + +---------+ + | Name | Relationship | Address | Phone | + + +---------+ + | Terrence Ortiz | ECON | Unknown | | + + +---------+ + Care Team Providers + +------+ + | Care Maintenance Custodian Name | Role | Phone | + +------+ + | Kylah Monroe | PCP | | + +------+ + Encounter Details +--------+ + + + + | Date | Type | Department | Care Team | Description | +--------+ + + + + | 11/16/ | Abstract | Digestive Health | Marian Huang MD | | | 2016 | | [place] at [facility] [address] | [address] | | | | | [address] | [address] [place], | | | | | Mailcode: [place] | [place] [address] | | | | | [facility] and | [phone] | | | | | [facility] 2 | | | | | | [place], [place] | | | | | | [address] | | | | | | [phone] | | | +--------+ + + + [...]
--- OUTSIDE RECORDS SUMMARY | ~2018-07-05 | XMS | Encounter Summary ---
Demographics + + + | Address | [address] | | | [place] [address] | + + + | Home Phone | | + + + | Preferred Language | Unknown | + + + | Marital Status | Single | + + + | Church Affiliation | NON | + + + | Race | White | + + + | Ethnic Group | Not or | + + + Author + + + | Author | [facility] | + + + | Organization | [facility] | + + + | Address | Unknown | + + + | Phone | Unavailable | + + + Support + + +---------+ + | Name | Relationship | Address | Phone | + + +---------+ + | Terrence Ortiz | ECON | Unknown | | + + +---------+ + Care Team Providers + +------+ + | Care Welding Machine Operator Submerged Arc Name | Role | Phone | + +------+ + | Kylah Monroe | PCP | | + +------+ + Reason for Visit + + + | Reason | Comments | + + + | Cessation Of Smoking | | + + + Encounter Details +--------+ + + + + | Date | Type | Department | Care Team | Description | +--------+ + + + + | 04/10/ | Telephone | Dig[facility]ive Health | Marian Huang MD | Cessation Of Smoking | | 2016 | | [facility] [address] | [address] | | | | | [address] [place] [facility], | | | | | Mailcode: [facility] [address] | | | | | for Health and | [phone] | | | | | [facility] 2 | | | | | | [place], [place] | | | | | | [address] | | | | | | [phone] | | | +--------+ + + + [...]
--- OUTSIDE RECORDS SUMMARY | ~2018-07-05 | XMS | Encounter Summary ---
Demographics + + + | Address | [address] | | | [place] [address] | + + + | Home Phone | | + + + | Preferred Language | Unknown | + + + | Marital Status | Single | + + + | Mu-Ism Affiliation | NON | + + + | Race | White | + + + | Ethnic Group | Not or | + + + Author + + + | Author | [facility] | + + + | Organization | [facility] | + + + | Address | Unknown | + + + | Phone | Unavailable | + + + Support + + +---------+ + | Name | Relationship | Address | Phone | + + +---------+ + | Terrence Ortiz | ECON | Unknown | | + + +---------+ + Care Team Providers + +------+ + | Care Digital Advertising Analyst Name | Role | Phone | + +------+ + | Kylah Monroe | PCP | | + +------+ + Encounter Details +--------+ + + + + | Date | Type | Department | Care Team | Description | +--------+ + + + + | 09/19/ | Procedure | 6A Intra Op [facility] | | | | 2017 | Pass | [facility] | | | | | | Admitting Desk | | | | | | Located on the 9th | | | | | | floor [address] [facility] | | | | | | [facility] | | | | | | [place], [place] | | | | | | [address] | | | +--------+ + + + [...]
--- OUTSIDE RECORDS SUMMARY | ~2018-07-05 | XMS | Encounter Summary ---
Demographics + + + | Address | [address] | | | [place] [address] | + + + | Home Phone [...] + + + | Author | [facility] | + + + | Organization | [facility] | + + + | Address | Unknown | + + + | Phone | Unavailable | + + + Support + + +---------+ + | Name | Relationship | Address | Phone | + + +---------+ + | Terrence Ortiz | ECON | Unknown | | + + +---------+ + Care Team Providers + +------+ + | Care Informal Waiter/Waitress Name | Role | Phone | + +------+ + | Kylah Monroe | PCP | | + +------+ + Reason for Visit + + + | Reason | Comments | + + + | Medical Records | | | Review | | + + + Encounter Details +--------+ + + + + | Date | Type | Department | Care Team | Description | +--------+ + + + + | 04/04/ | Abstract | Dig[facility]ive Health | Marian Huang MD | Medical Records | | 2017 | | [place] [address] [address] | [address] | Review | | | | [address] | [address] [place], | | | | | Mailcode: [place] | [place] [address] | | | | | for [facility] and | [phone] | | | | | [facility] 2 | | | | | | [place], [place] | | | | | | [address] | | | | | | [phone] | | | +--------+ + + + [...]
--- OUTSIDE RECORDS SUMMARY | ~2018-07-05 | XMS | Encounter Summary ---
Demographics + + + | Address | [address] | | | [place] [address] | + + + | Home Phone | | + + + | Preferred Language | Unknown | + + + | Marital Status | | + + + | Faith Affiliation | Unknown | + + + | Race | Unknown | + + + | Ethnic Group | Unknown | + + + Author + + + | Author | [facility] | + + + | Organization | [facility] | + + + | Address | Unknown | + + + | Phone | Unavailable | + + + Support + + +---------+ + | Name | Relationship | Address | Phone | + + +---------+ + | Terrence Ortiz | ECON | Unknown | | + + +---------+ + Care Team Providers + +------+ + | Care Seo Marketing Specialist Name | Role | Phone | + +------+ + | Kylah Monroe | PCP | | + +------+ + Reason for Visit + + + | Reason | Comments | + + + | Follow-up | 3 month | + + + Encounter Details +--------+---------+ + + + | Date | Type | Department | Care Team | Description | +--------+---------+ + + + | 07/02/ | Office | [facility] | Angelita Mccallum DO | Syncope, unspecified | | 2019 | Visit | Cardiology [facility] | [address] | syncope type | | | | [address] | [place], [place] | (Primary Dx); | | | | [facility] [address] | [address] | Orthostatic | | | | [place] [address] | | hypotension; Tobacco | | | | [phone] | | dependency | +--------+---------+ + + + Social History [...] AM PDT | + + + + in this encounter Progress Notes Angelita Mccallum DO - 07/02/2018 11:20 AM PDTFormatting of this note may be different from rani kulkarni. [facility] Cardiology Cardiology Follow Up Note Reason [...] this monitor. The patient is a current ygvn-yuo-nluy-a-day smoker. We discussed smoking cessation. She has tried taking Chantix in the past. We discussed taking nicotine supplements including ni cotine patch with intermittent nicotine gum use. She is interested in trying this. Interim History She was seen on 02/05/19 at which time we ordered a one week event monitor and an echocardi ogram. Her echo was done on 02/19/18 which was normal. Her event monitor was normal as well. S he had symptoms of palpitations, chest pain, one unspecified symptom that correlated with no rmal sinus rhythm. She was last seen by me on 04/16/2018 at which point she was still having issues with lighth eadedness and dizziness despite being off of clonidine. She tried to increase her fluid int adina but was having some difficulty with this. Today, she reports that she continues to have issues trying to increase her fluid intake. She has not tried compression stockings for he r symptoms. She has had about 5-6 episodes over the last 2 months and one episode where she completely lost vision during a near syncopal episode. She recently hurt her back and as a result has not been very active. She will be following up with an orthopedic surgeon for p ossible surgery. She continues to smoke. Review of Systems Constitutional: positive for fatigue. [...] Chronic low back pain with right-sided sciatica Degenerative disc disease at L5-S1 level Facet arthritis of lumbar region Mastodynia of left breast Nicotine dependence Continuing. Radiculopathy of lumbar region Rectal prolapse Spondylosis of lumbar region without myelopathy or radiculopathy Syncope and collapse Past Surgical History Procedure Laterality Date COLONOSCOPY HYSTERECTOMY 08/2010 INCONTINENCE SURGERY 08/2010 OTHER SURGICAL HISTORY pelvic floor reconstruction 08/2010 RECTAL PROLAPSE REPAIR 01/2013 MEDICATIONS Home Medications Outpatient Encounter Prescriptions as of 07/02/2018 Medication Sig Dispense Refill Cholecalciferol (VITAMIN D3) 2000 units TABS Take by mouth 2 (two) times daily. Cyanocobalamin (VITAMIN B 12 PO) Take 1,000 mcg by mouth. cyclobenzaprine (FLEXERIL) 10 MG tablet Take 10 mg by mouth daily. 0 HYDROcodone-acetaminophen (NORCO) 7.5-325 MG per tablet Take 1 tablet by mouth every 6 (six) hours as needed for Pain. Levomefolate Glucosamine (METHYLFOLATE PO) Take 50 mg by mouth. midodrine (PROAMATINE) 5 MG tablet Take 0.5 tablets by mouth 3 (three) times daily for 30 days. 90 tablet 3 No facility-administered encounter medications on file as of 07/02/2018. Allergies Not on File FAMILY HISTORY Family [...] on file PHYSICAL EXAM Vital Signs: BP 96/62 (BP Location: Left upper arm, Patient Position: Sitting) | Pulse 108 | Ht 1.727 m (5' 8") | Wt 76.8 kg (169 lb 4.8 oz) | SpO2 98% | BMI 25.74 kg/m Previous Orthostatic vital signs Laying 88/60 [...] and and echocardiogram which were both normal. We discussed pur suing conservative measures which she has not been very compliant with versus medical therap y with midodrine. The patient wants to try medication. - conservative measures including hydration, compression stockings, and activity were reinf orced. - start midodrine 2.5mg by mouth TID, she was told that she can increase this to 5mg po TID if no symptom improvement - She continues to smoke, she was encouraged to continue efforts at smoking cessation. - Follow up in 3 months Thank you for allowing me to participate in the care of this patient. Primary Care Physician: Kylah Mccallum, 07/02/2018in this encounter Plan of Treatment +--------+---------+ + + + | Date | Type | Specialty | Care Team | Description | +--------+---------+ + + + | 10/08/ | Office | Cardiology | Angelita Mccallum DO | | | 2019 | Visit | | [address] | | | | | | [place] | | | | | | [address] | | | | | | | | +--------+---------+ + + + as of this encounter Visit Diagnoses + + | Diagnosis | + + | Syncope, unspecified syncope type - Primary | + + | Orthostatic hypotension | + + | Tobacco dependency | + + | Tobacco use disorder | + +
--- OUTSIDE RECORDS SUMMARY | ~2018-07-05 | XMS | Encounter Summary ---
Demographics + + + | Address | [address] | | | [place] [address] | + + + | Home Phone | | + + + | Preferred Language | Unknown | + + + | Marital Status | Single | + + + | Confucianism Affiliation | NON | + + + [...] Team Providers + +------+ + | Care Supervisor Brine Name | Role | Phone | + [...] Medical Records | | 2017 | | [place] [address] [address] | [address] | Review | | | | [address] | [place], | | | | | Mailcode: [place] | [place] [address] | | | | | for [facility] and | [phone] | | | | | [facility] [address] | | | | | | [place], [place] | | | | | | [address] | | | | | | [phone] | | | +--------+ + + + [...]
--- OUTSIDE RECORDS SUMMARY | ~2018-07-05 | XMS | Encounter Summary ---
Demographics + + + | Address | [address] | | | [place] [address] | + + + | Home Phone | | + + + | Preferred Language | Unknown | + + + | Marital Status | Single | + + + | Anglican Affiliation | NON | + + + | Race | White | + + + | Ethnic Group | Not or | + + + Author + + + | Author | [facility] | + + + | Organization | [facility] | + + + | Address | Unknown | + + + | Phone | Unavailable | + + + Support + + +---------+ + | Name | Relationship | Address | Phone | + + +---------+ + | Terrence Ortiz | ECON | Unknown | | + + +---------+ + Care Team Providers + +------+ + | Care Cargo Bracer Name | Role | Phone | + [...] Other (Surgery | | 2017 | | [place] [address] [address] | [address] | Postponed) | | | | [address] [place] | [place], | | | | | Mailcode: [facility] [address] | | | | | for Health and | [phone] | | | | | [facility] 2 | | | | | | [place], [place] | | | | | | [address] | | | | | | [phone] | | | +--------+ + + + [...]
--- OUTSIDE RECORDS SUMMARY | ~2018-07-05 | XMS | Encounter Summary ---
Demographics + + + | Address | [address] | | | [place] [address] | + + + | Home Phone | | + + + | Preferred Language | Unknown | + + + | Marital Status | Single | + + + | Voodoo Affiliation | NON | + + + | Race | White | + + + | Ethnic Group | Not or | + + + Author + + + | Author | [facility] | + + + | Organization | [facility] | + + + | Address | Unknown | + + + | Phone | Unavailable | + + + Support + + +---------+ + | Name | Relationship | Address | Phone | + + +---------+ + | Terrence Ortiz | ECON | Unknown | | + + +---------+ + Care Team Providers + +------+ + | Care Pumping Plant Operator Name | Role | Phone | + +------+ + PCP | Unavailable | + +------+ + Encounter Details +--------+ + + + + | Date | Type | Department | Care Team | Description | +--------+ + + + + | 08/28/ | Procedure - | [facility] | Kobe Casper DO | Operative Report | | 2010 | | [address] | | | | | Transcribed | [place] | | | | | | [address] | | | +--------+ + + + [...] | + +--------+ + + + | OPERATION RECORD | | 08/28/2010 | | Results for this | | | | 6:45 AM | | procedure are in the | | | | PDT | | results section. | + +--------+ + + + documented in this encounter Results OPERATION RECORD (08/28/2010 6:45 AM PDT) + + | Transcriptions | + + | 08/28/2010 2:[address] [facility] | | REPORT OF [id number] [place], [place] [address] [address] | | [place] JDATE OF OPERATION: 08/28/2010SURGEON: Kobe Casper D.O.COMPLAINT: | | Uterovaginal prolapse.PROCEDURES: Total vaginal hysterectomy; Anterior colporrhaphy; | | PosteriorV plasty; Transobturator tape, monarch.FINDINGS: Findings at surgery under | | anesthesia demonstrate evidence of the cervixcoming through the vaginal introitus with | | prolapse of the bladder behind it and asmall prolapse of the cul-de-sac and, of course, | | a cystourethrocele. The uteruswas normal. Ovaries were normal. No cul-de-sac | | inflammation adhesions orendometriosis.DESCRIPTION OF PROCEDURE: With the patient under | | general anesthesia in the dorsallithotomy position in the [facility], the patient | | was carefully examined priorto draping. Everett catheter in the bladder with indigo | | carmine dye was present. Aweighted speculum was placed in the posterior vaginal vault. | | The cervix wasgrasped with 2 single-toothed tenacula and the paracervical area was | | injected with1% Xylocaine with epinephrine at 1:100,000. The cervix was circumcised, | | aposterior colpotomy occurred spontaneously. The uterosacral ligaments wereclamped, cut | | and tied with 0 Vicryl. The anterior bladder was reflected off thecervix by blunt and | | sharp dissection at the level of the uterine arteries and thenthe cardinal ligaments | | were desiccated with electrocautery. The anteriorcolporrhaphy was then created and the | | united broad ligament was systematicallyclamped, desiccated and cut to the level of the | | utero-ovarian vessels and roundligament and fallopian tube, which were similarly | | desiccated and cut. The uteruswas passed off the field. The pedicles were inspected | | for evidence of bleeding.There being none, right and left horizontal mattress sutures | | were placed throughthe vaginal cuff between the uterosacral ligaments and the base of | | the united broadligament. The uterosacral ligaments were then identified and followed | | proximallyfor approximately 3 cm, grasped with Allis clamps and secured with a suture of | | 0PDS in a zshpjq-vf-ekugl technique and then brought down to the base of the | | vaginalcuff and clamped and held in position. The procedure was then terminated | | andattention turned to the anterior colporrhaphy.The midline vaginal apex was incised up | | to the base of the urethrovesical junctionand the bladder reflected away from the | | vaginal epithelium by blunt and sharpdissection. The vesicovaginal fascia was poorly | | identified on the patient's rightside but fairly clear on the left. This was then | | closed in a horizontal mattresssuture, reducing the cystocele in the midline with good | | fascial attachment. Thevaginal cuff was then reinspected and there was quite a | | protrusion at the posteriorapex of the vaginal vault and, on that basis, a small | | V-plasty was accomplishedbetween the uterosacral ligaments and the cul-de-sac, removing | | an approximately 2-cm portion of vaginal tissue. A small thinned area of the bladder was | | identified inthe midline and this was oversewn with 2-0 chromic to ensure protection of | | thebladder floor. The bladder epithelium was never identified and there was no leakof | | urine.Attention was then turned to the transobturator tape placement. The right and | | leftobturator spaces were identified and a skin wheal created with | | SETH Solomon [id number] : [id number] DATE: | | 08/28/10epinephrine and a small skin incision made. The mid-urethral area was | | thenidentified with Allis clamps and injected with Xylocaine and epinephrine. Amidline | | incision was made large enough to accommodate the surgeon's index fingerand, using | | blunt and sharp dissection, the periurethral space was dissected. Theobturator trocars | | were then placed on the right and left sides, brought through theurethral incision and | | the tape attached and then withdrawn in [id number]-cjrmnmejxmwcis. A 10-mm spacer was | | placed under the urethra and the sheaths wereremoved from the tape and the tape was | | trimmed to the level of the skin of theobturator space. There being no significant | | evidence of bleeding, the urethralincision was then closed using 2-0 Vicryl.Closure: | | Initial sponge and needle count was correct.The Everett catheter was then removed from the | | bladder and the bladder distended withsaline and the cystoscope introduced. The | | anesthesiologist had injected indigocarmine and both ureter sites were identified and | | noted to be patent and thentension was brought around the uterosacral ligaments sutures | | to ensure no kinkingof the ureter and several injections of urine were then observed to | | ensure patencyof the ureters. There being no evidence of obstruction, the anterior | | portion ofthe bladder was identified and the lateral portions to ensure that there was | | noinjury to the bladder from the transobturator tape procedure. There being none,the | | cystoscopy was completed. The Everett catheter was replaced and the bladderdrained.The | | uterosacral ligament 0 PDS sutures were then tied. The primary uterosacralligaments | | were then tied across the midline and the vagina was closed in acontinuous suture of 0 | | Vicryl with good hemostasis. Care was taken to inspect eachsurgical site prior to the | | final closure to ensure hemostasis. A vaginal pack wasplaced and the patient taken to | | recovery in stable condition.DAM/MedQDD: 08/28/2010 10:14:14DT: 08/28/2010 10:45:50Job | | #: [id number] Signed 12/04/10 | | 1342 | | | | | | | | | | | | | | Kobe Casper, | | SETH [place]OPEZ [id number] : [id number] DATE: 08/28/10 | |The Everett catheter was then removed from the bladder and the bladder distended with | |saline and the cystoscope introduced. The anesthesiologist had injected indigo | |carmine and both ureter sites were identified and noted to be patent and then | |tension was brought around the uterosacral ligaments sutures to ensure no kinking | |of the ureter and several injections of urine were then observed to ensure patency | |of the ureters. There being no evidence of obstruction, the anterior portion of | |the bladder was identified and the lateral portions to ensure that there was no | |injury to the bladder from the transobturator tape procedure. There being none, | |the cystoscopy was completed. The Everett catheter was replaced and the bladder | |drained. | | | |The uterosacral ligament 0 PDS sutures were then tied. The primary uterosacral | |ligaments were then tied across the midline and the vagina was closed in a | |continuous suture of 0 Vicryl with good hemostasis. Care was taken to inspect each | |surgical site prior to the final closure to ensure hemostasis. A vaginal pack was | |placed and the patient taken to recovery in stable condition. | | | | | |ISA/Subhash | | | | | | /[id number] | |Electronically Signed 12/04/10 1342 | | | | | | Kobe Casper DO | | | | | | | | | | | | | | | | | | | | | | | | | | | | | | | | | | | |SETH INIGUEZ | |[id number] : [id number] | |[id number] | |ADMIT DATE: 08/28/10 | + + documented in this encounter Visit Diagnoses Not on filedocumented in this encounter"
--- OUTSIDE RECORDS SUMMARY | ~2018-07-05 | XMS | Encounter Summary ---
Demographics + + + | Address | [address] | | | [place] [address] | + + + | Home Phone | | + + + | Preferred Language | Unknown | + + + | Marital Status | | + + + | Orthodox Affiliation | Unknown | + + + | Race | Unknown | + + + | Ethnic Group | Unknown | + + + Author + + + | Author | [facility] | + + + | Organization | [facility] | + + + | Address | Unknown | + + + | Phone | Unavailable | + + + Support + + +---------+ + | Name | Relationship | Address | Phone | + + +---------+ + | Terrence Ortiz | ECON | Unknown | | + + +---------+ + Care Team Providers + +------+ + | Care Spinning Room Worker Name | Role | Phone | + +------+ + | Kylah Monroe | PCP | | + +------+ + Reason for Visit +--------+ + | Reason | Comments | +--------+ + | Other | Referral for Neurosurgery from [facility] 06/24/18 | +--------+ + Encounter Details +--------+ + + + + | Date | Type | Department | Care Team | Description | +--------+ + + + + | 06/25/ | Documentati | [facility] | Keyonna Meier CMA | Other (Referral for | | 2018 | on Only | [facility] | | Neurosurgery from | | | | [address] | | [place] | | | | [place] | | Medicine 06/24/18) | | | | [address] | | | | | | [phone] | | | +--------+ + + + [...] + + + as of this encounter Plan of Treatment +--------+---------+ + + + | Date | Type | Specialty | Care Team | Description | +--------+---------+ + + + | 10/08/ | Office | Cardiology | Angelita Mccallum DO | | | 2019 | Visit | | [address] | | | | | | [place] | | | | | | [id number] | | | | | | | | +--------+---------+ + + + as of this encounter Visit Diagnoses Not on filein this encounter"
--- OUTSIDE RECORDS SUMMARY | ~2018-07-05 | XMS | Encounter Summary ---
Demographics + + + | Address | [address] | | | [place] [address] | + + + | Home Phone [...] Author + + + | Author | [facility] | + + + | Organization | [facility] | + + + | Address | Unknown | + + + | Phone | Unavailable | + + + Support + + +---------+ + | Name | Relationship | Address | Phone | + + +---------+ + | Terrence Ortiz | ECON | Unknown | | + + +---------+ + Care Team Providers + +------+ + | Care Senior Data Integration Developer Name | Role | Phone | + +------+ + | Unknown | PCP | Unavailable | + +------+ + Reason for Visit + + + | Reason | Comments | + + + | Referral To Surgery | | | - General | | + + + Encounter Details +--------+ + + + + | Date | Type | Department | Care Team | Description | +--------+ + + + + | 10/05/ | Abstract | Dig[facility]ive Health | Clinic, Surgery | Referral To Surgery | | 2015 | | Center at [facility] [address] | | - General | | | | [address] [place] | | | | | | Mailcode: Center | | | | | | for Health and | | | | | | Healing, [facility] 2 | | | | | | [place], [place] | | | | | | [address] | | | | | | [phone] | | | +--------+ + + + [...]
--- OUTSIDE RECORDS SUMMARY | ~2018-07-05 | XMS | Encounter Summary ---
Demographics + + + | Address | [address] | | | [place] [address] | + + + | Home Phone | | + + + | Preferred Language | Unknown | + + + | Marital Status | Single | + + + | Restoration Affiliation | NON | + + + | Race | White | + + + | Ethnic Group | Not or | + + + Author + + + | Author | [facility] | + + + | Organization | [facility] | + + + | Address | Unknown | + + + | Phone | Unavailable | + + + Support + + +---------+ + | Name | Relationship | Address | Phone | + + +---------+ + | Terrence Ortiz | ECON | Unknown | | + + +---------+ + Care Team Providers + +------+ + | Care Latcher Name | Role | Phone | + +------+ + | Kylah Mnoroe | PCP | | + +------+ + Reason for Visit + + + | Reason | Comments | + + + | Medical Records | | | Review | | + + + Encounter Details +--------+ + + + + | Date | Type | Department | Care Team | Description | +--------+ + + + + | 04/16/ | Abstract | Digestive Health | Marian Huang MD | Medical Records | | 2017 | | [place] [address] [address] | [address] | Review | | | | [address] | [address] [place], | | | | | Mailcode: [place] | [place] [address] | | | | | for [facility] and | [phone] | | | | | [facility] 2 | | | | | | [place], [place] | | | | | | [address] | | | | | | [phone] | | | +--------+ + + + [...]
--- OUTSIDE RECORDS SUMMARY | ~2018-07-05 | XMS | Clinical Summary ---
Demographics + + + | Address | [address] | | | [place] [address] | + + + | Home Phone | | + + + | Preferred Language | Unknown | + + + | Marital Status | Single | + + + | Zoroastrian Affiliation | NON | + + + [...] Phone | + + +---------+ + | Terernce Ortiz | ECON | Unknown | | + + +---------+ + Care Team Providers + +------+ + | Care Labelling Machine Operator Name | Role | Phone | + +------+ + | Kylah Monroe | PP | | + +------+ + Source Comments MELANIE is fully live on both [facility] and [facility] InPatient.[facility] Allergies No Known Allergies Medications + + + +---------+------+------+-------+ | Medication | Sig | Dispensed | Refills | Star | End | Statu | | | | | | t | Date | s | | | | | | Date | | | + + + +---------+------+------+-------+ | Cholecalciferol, | Take 5,000 Units by | | 0 | | | Activ | | Vitamin D3, 5,000 | mouth once daily. | | | | | e | | unit oral tablet | | | | | | | + + + +---------+------+------+-------+ | LEVOMEFOLATE | Take by mouth once | | 0 | | | Activ | | CALCIUM (ELFOLATE | daily. | | | | | e | | ORAL) | | | | | | | + + + +---------+------+------+-------+ | cyanocobalamin | Take 1,000 mcg by | | 0 | | | Activ | | (VITAMIN B-12) 1,000 | mouth once daily. | | | | | e | | mcg oral tablet | | | | | | | + + + +---------+------+------+-------+ Active Problems [...] | | + + + + + Plan of Treatment + + + + + | Health Maintenance | Due Date | Last Done | Comments | + + + + + | Pneumococcal (Adult) | | | | | (1 of 1 - PPSV23) | 9 | | | + + + + + | Influenza (Flu) | | | | | vaccination (Season | 9 | | | | Ended) | | | | + + + + + Results Not on filefrom Last 3 Months Insurance + +--------+ +--------+ + +--------+ | Payer | Benefi | Subscriber | Effect | Phone | Address | Type | | | t Plan | ID | maya | | | | | | / | | Dates | | | | | | Group | | | | | | + +--------+ +--------+ + +--------+ | MEDICARE | MEDICA | xxxxxxxxxx | | [phone] | [address] | | | RE A & | | [address] | [address] | | | B | | esent | | [place] | | | | | | | | [address] | | + +--------+ +--------+ + +--------+ | [place]ICAID [place] | OHP | xxxxxxxx | 09/18/19 | [phone] | [address] | | | PLUS | | 16-Pre | 6 | [id number] | id | | | OPEN | | sent | | [place], [place] | | | | CARD | | | | [id number] | | + +--------+ +--------+ + +--------+ + +--------+ +--------+ + + | Guarantor Name | Accoun | Relation to | Date | Phone | Billing Address | | | t Type | Patient | of | | | | | | | | | | + +--------+ +--------+ + + | Sujata Iniguez | Person | Self | [birth year] | [address] | | | al/Fam | | 1981 | [phone] | [place] [address] | | | lito | | | [address] (Home) | | + +--------+ +--------+ + +
--- OUTSIDE RECORDS SUMMARY | ~2018-07-05 | XMS | Encounter Summary ---
Demographics + + + | Address | [address] | | | [place] [address] | + + + | Home Phone | | + + + | Preferred Language | Unknown | + + + | Marital Status | Single | + + + | Roman Catholic Affiliation | NON | + + + | Race | White | + + + | Ethnic Group | Not or | + + + Author + + + | Author | [facility] | + + + | Organization | [facility] | + + + | Address | Unknown | + + + | Phone | Unavailable | + + + Support + + +---------+ + | Name | Relationship | Address | Phone | + + +---------+ + | Terrence Ortiz | ECON | Unknown | | + + +---------+ + Care Team Providers + +------+ + | Care Automotive Collision Repair Instructor Name | Role | Phone | + +------+ + | Kylah Monroe | PCP | | + +------+ + Reason for Visit + + + | Reason | Comments | + + + | Test Results | Defecography results | + + + Encounter Details +--------+ + + + + | Date | Type | Department | Care Team | Description | +--------+ + + + + | 01/07/ | Telephone | Dig[facility]ive Health | Marian Huang MD | Test Results | | 2016 | | Center at [facility] [address] | [address] | (Defecography | | | | [address] | [address] [place], | results) | | | | Mailcode: [place] | [place] [address] | | | | | for Health and | [phone] | | | | | [facility] 2 | | | | | | [place], [place] | | | | | | [address] | | | | | | [phone] | | | +--------+ + + + [...]
--- OUTSIDE RECORDS SUMMARY | ~2018-07-05 | XMS | Encounter Summary ---
Demographics + + + | Address | [address] | | | [place] [address] | + + + | Home Phone | | + + + | Preferred Language | Unknown | + + + | Marital Status | Single | + + + | Lutheran Affiliation | NON | + + + | Race | White | + + + | Ethnic Group | Not or | + + + Author + + + | Author | [facility] | + + + | Organization | [facility] | + + + | Address | Unknown | + + + | Phone | Unavailable | + + + Support + + +---------+ + | Name | Relationship | Address | Phone | + + +---------+ + | Terrence Ortiz | ECON | Unknown | | + + +---------+ + Care Team Providers + +------+ + | Care Concrete Finisher Apprentice Name | Role | Phone | + [...] | prolapse | [address] | [address] [facility] | | | | | | HOSPITAL | [address] | | | | | | CARE CLINIC | [facility], | | | | | | [address] | [place] | | | | | | [address] | [address] | | | | | | [place], | Phone: | | | | | | [place] [address] | [phone] | | | | | | Phone: | Fax: | | | | | | [phone] | [phone] | | | | | | Fax: | | | | | | | [phone] | | +--------+--------+ + + + + Encounter Details +--------+---------+ + + + | Date | Type | Department | Care Team | Description | +--------+---------+ + + + | 09/18/ | Office | Digestive Health | Marian Huang MD | Rectal prolapse | | 2017 | Visit | [place] [facility] [address] | [address] | (Primary Dx) | | | | [address] | [address] [place], | | | | | Mailcode: [place] | [place] [address] | | | | | [facility] and | [phone] | | | | | [facility] 2 | | | | | | [place], [place] | | | | | | [address] | | | | | | [phone] | | | +--------+---------+ + + + [...] continuously to schedule repair. Ahsan Taylor MD [facility] Department of Surgery Pager: [phone] u, Marian Donahue MD - 017 1:00 [...] established patient, I spent 46 minutes of jlis-cg-ukzf time, of which more than half the time was spent in counseling. 20 minute document review do cumented in this encounter Plan of Treatment Not on filedocumented as of this encounter Visit Diagnoses + + | Diagnosis | + + | Rectal prolapse - Primary | + + documented in this encounter
--- OUTSIDE RECORDS SUMMARY | ~2018-07-05 | XMS | Encounter Summary ---
Demographics + + + | Address | [address] | | | [place] [address] | + + + | Home Phone | | + + + | Preferred Language | Unknown | + + + | Marital Status | | + + + | Catholic Affiliation | Unknown | + + + | Race | Unknown | + + + | Ethnic Group | Unknown | + + + Author + + + | Author | [facility] | + + + | Organization | [facility] | + + + | Address | Unknown | + + + | Phone | Unavailable | + + + Support + + +---------+ + | Name | Relationship | Address | Phone | + + +---------+ + | Terrence Ortiz | ECON | Unknown | | + + +---------+ + Care Team Providers + +------+ + | Care Line Repairer Tower Name | Role | Phone | + +------+ + | Kylah Monroe | PCP | | + +------+ + Reason for Visit +--------+ + | Reason | Comments | +--------+ + | Other | Referral for Neurosurgery from [facility] 06/24/18 | +--------+ + Encounter Details +--------+ + + + + | Date | Type | Department | Care Team | Description | +--------+ + + + + | 06/25/ | Documentati | [facility] | Keyonna Meier CMA | Other (Referral for | | 2018 | on Only | Neuroscience [place] | | Neurosurgery from | | | | [address] | | Aries Pandey | | | | [place] | | Medicine 06/24/18) | | | | [address] | | | | | | [phone] | | | +--------+ + + + [...] [place] | | | | | | [id number] | | | | | | | | +--------+---------+ + + + as of this encounter Visit Diagnoses Not on filein this encounter"
--- OUTSIDE RECORDS SUMMARY | ~2018-07-05 | XMS | Encounter Summary ---
Demographics + + + | Address | [address] | | | [place] [address] | + + + | Home Phone | | + + + | Preferred Language | Unknown | + + + | Marital Status | | + + + | Restorationist Affiliation | Unknown | + + + | Race | Unknown | + + + | Ethnic Group | Unknown | + + + Author + + + | Author | [facility] | + + + | Organization | [facility] | + + + | Address | Unknown | + + + | Phone | Unavailable | + + + Support + + +---------+ + | Name | Relationship | Address | Phone | + + +---------+ + | Terrence Ortiz | ECON | Unknown | | + + +---------+ + Care Team Providers + +------+ + | Care Fruit Thinner Name | Role | Phone | + [...] | | 2019 | Visit | Cardiology Will | [address] | syncope type | | | | [address] | [place], [place] | (Primary Dx); | | | | [facility] | [address] | Orthostatic | | | | [place] [address] | | hypotension; Tobacco | | | | [phone] | | dependency | +--------+---------+ + + [...] note may be different from rani kulkarni. [facility] Cardiology Cardiology Follow Up Note Reason for [...] this monitor. The patient is a current ukcz-vte-gboy-a-day smoker. We discussed smoking cessation. She has [...] [place] | | | | | | [address] | | | | | | | | +--------+---------+ + + + as of this encounter Visit Diagnoses + + | Diagnosis | + + | Syncope, unspecified syncope type - Primary | + + | Orthostatic hypotension | + + | Tobacco dependency | + + | Tobacco use disorder | + +
--- OUTSIDE RECORDS SUMMARY | ~2018-07-05 | XMS | Encounter Summary ---
Demographics + + + | Address | [address] | | | [place] [address] | + + + | Home Phone | | + + + | Preferred Language | Unknown | + + + | Marital Status | Single | + + + | Worship Affiliation | NON | + + + | Race | White | + + + | Ethnic Group | Not or | + + + Author + + + | Author | [facility] | + + + | Organization | [facility] | + + + | Address | Unknown | + + + | Phone | Unavailable | + + + Support + + +---------+ + | Name | Relationship | Address | Phone | + + +---------+ + | Terrence Ortiz | ECON | Unknown | | + + +---------+ + Care Team Providers + +------+ + | Care Recovery Operator Helper Name | Role | Phone | + [...] | +--------+ + + + + | 04/09/ | Abstract | Digestive Health | Marian Huang MD | Medical Records | | 2017 | | [place] [address] [address] | [address] | Review | | | | [address] | [address] [place], | | | | | Mailcode: [place] | [place] [address] | | | | | for [facility] and | [phone] | | | | | [facility] 2 | | | | | | [place], [place] | | | | | | [address] | | | | | | [phone] | | | +--------+ + + + [...]
--- OUTSIDE RECORDS SUMMARY | ~2018-07-05 | XMS | Encounter Summary ---
Demographics + + + | Address | [address] | | | [place] [address] | + + + | Home Phone | | + + + | Preferred Language | Unknown | + + + | Marital Status | Single | + + + | Pentecostalism Affiliation | NON | + + + | Race | White | + + + | Ethnic Group | Not or | + + + Author + + + | Author | [facility] | + + + | Organization | [facility] | + + + | Address | Unknown | + + + | Phone | Unavailable | + + + Support + + +---------+ + | Name | Relationship | Address | Phone | + + +---------+ + | Terrence Ortiz | ECON | Unknown | | + + +---------+ + Care Team Providers + +------+ + | Care Weld Engineer Name | Role | Phone | + +------+ + | Kylah Monroe | PCP | | + +------+ + Reason for Visit +--------+ + | Reason | Comments | +--------+ + | Other | Review pre-op instructions | +--------+ + Encounter Details +--------+ + + + + | Date | Type | Department | Care Team | Description | +--------+ + + + + | 05/10/ | Telephone | Digestive Health | Marian Huang MD | Other (Review pre-op | | 2017 | | Center at [facility] [address] | [address] | instructions) | | | | [address] | [address] [place], | | | | | Mailcode: [place] | [place] [address] | | | | | for Health and | [phone] | | | | | [facility] 2 | | | | | | [place], [place] | | | | | | [address] | | | | | | [phone] | | | +--------+ + + + [...]
--- OUTSIDE RECORDS SUMMARY | ~2018-07-05 | XMS | Encounter Summary ---
Demographics + + + | Address | [address] | | | [place] [address] | + + + | Home Phone [...] + + + | Author | [facility] | + + + | Organization | [facility] | + + + | Address | Unknown | + + + | Phone | Unavailable | + + + Support + + +---------+ + | Name | Relationship | Address | Phone | + + +---------+ + | Terrence Ortiz | ECON | Unknown | | + + +---------+ + Care Team Providers + +------+ + | Care Cream Dumper Name | Role | Phone | + [...] | | | | Rectal | MD [address] | | | | | | prolapse | [address] | | | | | | Procedures | [address] | | | | | | MRI PELVIS | [facility] [place] | | | | | | WO CONTRAST | [address] | | | | | | | Phone: | | | | | | | [phone] | | | | | | | Fax: | | | | | | | [phone] | | +--------+--------+ + + + + Diagnostic Testing (Urgent) +--------+--------+ + + + + | Status | Reason | Specialty | Diagnoses / | Referred By | Referred To | | | | | Procedures | Contact | Contact | +--------+--------+ + + + + | Closed | | Radiology | Diagnoses | Marian Huang, | | | | | | Rectal | MD [address] | | | | | | prolapse | [address] | | | | | | Procedures | [address] | | | | | | MRI PELVIS | [place], [place] | | | | | | WO CONTRAST | [address] | | | | | | | Phone: | | | | | | | [phone] | | | | | | | Fax: | | | | | | | [phone] | | +--------+--------+ + + + + Reason for Visit Diagnostic Testing (Urgent) +--------+--------+ + + + + | Status | Reason | Specialty | Diagnoses / | Referred By | Referred To | | | | | Procedures | Contact | Contact | +--------+--------+ + + + + | Closed | | Radiology | Diagnoses | Marian Huang, | | | | | | Rectal | MD [address] | | | | | | prolapse | [address] | | | | | | Procedures | [address] | | | | | | MRI PELVIS | [place], [place] | | | | | | WO CONTRAST | [address] | | | | | | | Phone: | | | | | | | [phone] | | | | | | | Fax: | | | | | | | [phone] | | +--------+--------+ + + + + Encounter Details +--------+ + + + + | Date | Type | Department | Care Team | Description | +--------+ + + + + | 01/01/ | Hospital | Diagnostic Imaging | | | | 2015 | Encounter | Services at [facility] | | | | | | [address] | | | | | | [facility] | | | | | | Mailcode: [address] | | | | | | [facility] | | | | | | [place], [place] | | | | | | [address] | | | | | | [phone] | | | +--------+ + + + [...] + + documented as of this encounter Medications at Time of Discharge + + + +---------+--------+ + | Medication | Sig | Dispensed | Refills | Start | End Date | | | | | | Date | | + + + +---------+--------+ + | Cholecalciferol, | Take 5,000 Units by | | 0 | | | | Vitamin D3, 5,000 | mouth once daily. | | | | | | unit oral tablet | | | | | | + + + +---------+--------+ + documented as of this encounter Plan of Treatment Not on filedocumented as of this encounter Procedures + +--------+ + + + | Procedure Name | Priori | Date/Time | Associated Diagnosis | Comments | | | ty | | | | + +--------+ + + + | MRI PELVIS WO | Routin | 01/02/2016 | Rectal prolapse | Results for this | | CONTRAST | e | 10:30 AM | | procedure are in the | | | | PST | | results section. | + +--------+ + + + documented in this encounter Results MRI PELVIS WO CONTRAST [...] TON | | | | | | HEATHER MDAuthor: ALLIE | | | | | | [...] TON | | | | | | HEATHER 01/03/2016 15:57 | | | | | | PM Pending final | | | | | | approval / ALLIE | | | | | | SERGO 01/03/2016 10:01 | | | | | | AM Preliminary / | | | | | | ALLIE HEDGE 01/02/2016 | | | | | | 13:05 PM | | | | + + + + + + + + | Specimen | + + | | + + + +---------+ + + | Performing | Address | City/State/Zipcode | Phone Number | | Organization | | | | + +---------+ + + | [facility] DEPARTMENT | | | | | RADIOLOGY | | | | + +---------+ + + documented in this encounter Visit Diagnoses + + | Diagnosis | + + | Rectal prolapse | + + documented in this encounter"
--- OUTSIDE RECORDS SUMMARY | ~2018-07-05 | XMS | Encounter Summary ---
Demographics + + + | Address | [address] | | | [place] [address] | + + + | Home Phone | | + + + | Preferred Language | Unknown | + + + | Marital Status | Single | + + + | Synagogue Affiliation | NON | + + + | Race | White | + + + | Ethnic Group | Not or | + + + Author + + + | Author | [facility] | + + + | Organization | [facility] | + + + | Address | Unknown | + + + | Phone | Unavailable | + + + Support + + +---------+ + | Name | Relationship | Address | Phone | + + +---------+ + | Terrence Ortiz | ECON | Unknown | | + + +---------+ + Care Team Providers + +------+ + | Care Guard Captain Name | Role | Phone | + [...] 10/05/ | Abstract | Digestive Health | Júnior Diggs, | Medical Records | | 2015 | | Center at [facility] | [address] | Review | | | | [address] | [address] | | | | | Mailcode: Center | [place], [place] | | | | | for Health and | [address] | | | | | [facility] 2 | [phone] | | | | | [place], [place] | | | | | | [address] | | | | | | [phone] | | | +--------+ + + + [...]
--- OUTSIDE RECORDS SUMMARY | ~2018-07-05 | XMS | Encounter Summary ---
Demographics + + + | Address | [address] | | | [place] [address] | + + + | Home Phone | | + + + | Preferred Language | Unknown | + + + | Marital Status | Single | + + + | Spiritism Affiliation | NON | + + + | Race | White | + + + | Ethnic Group | Not or | + + + Author + + + | Author | [facility] | + + + | Organization | [facility] | + + + | Address | Unknown | + + + | Phone | Unavailable | + + + Support + + +---------+ + | Name | Relationship | Address | Phone | + + +---------+ + | Terrence Ortiz | ECON | Unknown | | + + +---------+ + Care Team Providers + +------+ + | Care Signal System Testing Maintainer Name | Role | Phone | + +------+ + PCP | Unavailable | + +------+ + Encounter Details +--------+ + + + + | Date | Type | Department | Care Team | Description | +--------+ + + + + | 08/28/ | Results | [facility] | [address]ie Banuelos | | | 2010 | Only | [address] | [phone] | | | | | [place] | | | | | | [address] | | | +--------+ + + + [...] + + + + | WBC, | SUPERVISOR ROVING DEPARTMENT | X10 3/uL | [facility] | | [...] + + + | BANDS % | SUPERVISOR ROVING DEPARTMENT | 0 - 7 % | [facility] [...] + + + + | EOSINOPHIL% | SUPERVISOR ROVING DEPARTMENT | 0 - 5 % | [facility] | | | , MANUAL | | | A MEDICAL | | | | | | CENTER | | + + + + + + | BASOPHIL%, | SUPERVISOR ROVING DEPARTMENT | 0 - 1 % | [facility] | | | MANUAL | | | A MEDICAL | | | | | | CENTER | | + + + + + + | REACTIVE | SUPERVISOR ROVING DEPARTMENT | 0.0 - 4.0 % | [facility] | | | LYMPHS % | | | A MEDICAL | | | | | | CENTER | | + + + + + + | BANDS % | SUPERVISOR ROVING DEPARTMENT | 0 - 7 % | [facility] | | | | | | A MEDICAL | | | | | | CENTER | | + + + + + + | METAMYELOCY | SUPERVISOR ROVING DEPARTMENT | 0 - 0 % | [facility] | | | APARNA % | | | A MEDICAL | | | | | | CENTER | | + + + + + + | MYELOCYTES | SUPERVISOR ROVING DEPARTMENT | 0 - 0 % | [facility] | | | % | | | A MEDICAL | | | | | | CENTER | | + + + + + + | PROMYELOCYT | SUPERVISOR ROVING DEPARTMENT | 0 - 0 % | [facility] | | | ES % | | | A MEDICAL | | | | | | CENTER | | + + + + + + | BLASTS | SUPERVISOR ROVING DEPARTMENT | 0 - 0 % | [facility] [...] + + + + | NUCLEATED | SUPERVISOR ROVING DEPARTMENT | | [facility] | | | RBCS | | | A MEDICAL | | | | | | CENTER | | + + + + + + | GIANT PLT | SUPERVISOR ROVING DEPARTMENT | | [facility] | | | | [...] + + | [facility] | And | [place] [address] | | | [facility] | Streets | | | + + [...] [facility] | | | GLUCOSE, | [id number]: | | OF CARE | | | POC | [id number] [address] | | TESTING | | [...]
--- OUTSIDE RECORDS SUMMARY | ~2018-07-05 | XMS | Encounter Summary ---
Demographics + + + | Address | [address] | | | [place] [address] | + + + | Home Phone | | + + + | Preferred Language | Unknown | + + + | Marital Status | Single | + + + | Restorationist Affiliation | NON | + + + [...] Team Providers + +------+ + | Care Budget Technician Name | Role | Phone | + +------+ + | Kylah Monroe | PCP | | + +------+ + Encounter Details +--------+ + + + + | Date | Type | Department | Care Team | Description | +--------+ + + + + | 09/19/ | Procedure | 6A Intra Op [facility] | | | | 2017 | Pass | [facility] | | | | | | Admitting Desk | | | | | | Located on the 9th | | | | | | floor [address] [facility] | | | | | | [facility] | | | | | | [place], [place] | | | | | | [address] | | | +--------+ + + + [...]
--- OUTSIDE RECORDS SUMMARY | ~2018-07-05 | XMS | Encounter Summary ---
Demographics + + + | Address | [address] | | | [place] [address] | + + + | Home Phone | | + + + | Preferred Language | Unknown | + + + | Marital Status | Single | + + + | Yarsani Affiliation | NON | + + + [...] Team Providers + +------+ + | Care Brake Linings Coater Name | Role | Phone | + +------+ + | Kylah Monroe | PCP | | + +------+ + Reason for Visit + + + | Reason | Comments | + + + | Surgery Concerns | | + + + Encounter Details +--------+ + + + + | Date | Type | Department | Care Team | Description | +--------+ + + + + | 07/17/ | Telephone | Dig[facility]ive Health | Marian Huang MD | Surgery Concerns | | 2017 | | [place] [address] [address] | [address] | | | | | [address] | [address], | | | | | Mailcode: [place] | [place] [address] | | | | | for Health and | [phone] | | | | | [facility] 2 | | | | | | [place], [place] | | | | | | [address] | | | | | | [phone] | | | +--------+ + + + [...]
--- OUTSIDE RECORDS SUMMARY | ~2018-07-05 | XMS | Encounter Summary ---
Demographics + + + | Address | [address] | | | [place] [address] | + + + | Home Phone [...] Author + + + | Author | [facility] | + + + | Organization | [facility] | + + + | Address | Unknown | + + + | Phone | Unavailable | + + + Support + + +---------+ + | Name | Relationship | Address | Phone | + + +---------+ + | Terrence Ortiz | ECON | Unknown | | + + +---------+ + Care Team Providers + +------+ + | Care Nuclear Medicine Pet Ct Technologist Name | Role | Phone | + [...] | | 2015 | | Center at [facility] [address] | | - General | | | | [address] | | | | | | Mailcode: Center | | | | | | for Health and | | | | | | Healing, [facility] 2 | | | | | | [place], [place] | | | | | | [address] | | | | | | [phone] | | | +--------+ + + + [...]
--- OUTSIDE RECORDS SUMMARY | ~2018-07-05 | XMS | Encounter Summary ---
Demographics + + + | Address | [address] | | | [place] [address] | + + + | Home Phone | | + + + | Preferred Language | Unknown | + + + | Marital Status | Single | + + + | Latter Day Affiliation | NON | + + + | Race | White | + + + | Ethnic Group | Not or | + + + Author + + + | Author | [facility] | + + + | Organization | [facility] | + + + | Address | Unknown | + + + | Phone | Unavailable | + + + Support + + +---------+ + | Name | Relationship | Address | Phone | + + +---------+ + | Terrence Ortiz | ECON | Unknown | | + + +---------+ + Care Team Providers + +------+ + | Care Tug Boat Engineer Name | Role | Phone | [...] | | [address] | [address] [place], | ([facility] ) | | | | Mailcode: [place] | [place] [address] | | | | | for Health and | [phone] | | | | | [facility] 2 | | | | | | [place], [place] | | | | | | [address] | | | | | | [phone] | | | +--------+ + + + [...]
--- OUTSIDE RECORDS SUMMARY | ~2018-07-05 | XMS | Encounter Summary ---
Demographics + + + | Address | [address] | | | [place] [address] | + + + | Home Phone | | + + + | Preferred Language | Unknown | + + + | Marital Status | Single | + + + | Muslim Affiliation | NON | + + + | Race | White | + + + | Ethnic Group | Not or | + + + Author + + + | Author | [facility] | + + + | Organization | [facility] | + + + | Address | Unknown | + + + | Phone | Unavailable | + + + Support + + +---------+ + | Name | Relationship | Address | Phone | + + +---------+ + | Terrence Ortiz | ECON | Unknown | | + + +---------+ + Care Team Providers + +------+ + | Care Director Of Nurses Registry Name | Role | Phone | + +------+ + | Kylah Monroe | PCP | | + +------+ + Reason for Visit + + + | Reason | Comments | + + + | Follow-up encounter | Pre-Op Instructions | + + + Encounter Details +--------+ + + + + | Date | Type | Department | Care Team | Description | +--------+ + + + + | 07/04/ | Telephone | Digestive Health | Júnior Diggs, | Follow-up encounter | | 2017 | | Center at [address] | [address] | (Pre-Op | | | | [address] | [address] | Instructions) | | | | Mailcode: Center | [place], [place] | | | | | [facility] and | [address] | | | | | [facility] 2 | [phone] | | | | | [place], [place] | | | | | | [address] | | | | | | [phone] | | | +--------+ + + + [...]
--- OUTSIDE RECORDS SUMMARY | ~2018-07-05 | XMS | Clinical Summary ---
Demographics + + + | Address | [address] | | | [place] [address] | + + + | Home Phone | | + + + | Preferred Language | Unknown | + + + | Marital Status | | + + + | Gnosticist Affiliation | Unknown | + + + | Race | Unknown | + + + | Ethnic Group | Unknown | + + + Author + + + | Author | [facility] | + + + | Organization | [facility] | + + + | Address | Unknown | + + + | Phone | Unavailable | + + + Support + + +---------+ + | Name | Relationship | Address | Phone | + + +---------+ + | Terrence Ortiz | ECON | Unknown | | + + +---------+ + Care Team Providers + +------+ + | Care Microsoft Dynamics Developer Name | Role | Phone | [...] from | | | | | | [place] Family | | | | | | [...] [place] | | | | | | [address] | | | | | | | [...] +------+-------+ + | MEDICARE | MEDICA | [id number] | | | [address] | | | RE | | | | [place] [address] | | | IP-OP | | | | | + +--------+ +------+-------+ + | MEDICAID | MEDICA | [id number] | | | [address] | | | ID | | | | [place] | | | [place] | | | | [address] | + +--------+ +------+-------+ + + +--------+ [...] | [address] | | | [phone] | [phone] | + +--------+ +--------+ + +
--- OUTSIDE RECORDS SUMMARY | ~2018-07-05 | XMS | Encounter Summary ---
Demographics + + + | Address | [address] | | | [place] [address] | + + + | Home Phone | | + + + | Preferred Language | Unknown | + + + | Marital Status | Single | + + + | Sikhism Affiliation | NON | + + + [...] Team Providers + +------+ + | Care Phosphorus Processing Supervisor Name | Role | Phone | + [...] | | | | Mailcode: Center | [place], [place] | | | | | [facility] and | [address] | | | | | [facility] 2 | [phone] | | | | | [place], [place] | | | | | | [address] | | | | | | [phone] | | | +--------+ + + + [...]
--- OUTSIDE RECORDS SUMMARY | ~2018-07-05 | XMS | Encounter Summary ---
Demographics + + + | Address | [address] | | | [place] [address] | + + + | Home Phone | | + + + | Preferred Language | Unknown | + + + | Marital Status | | + + + | Oriental Orthodox Affiliation | Unknown | + + + | Race | Unknown | + + + | Ethnic Group | Unknown | + + + Author + + + | Author | [facility] | + + + | Organization | [facility] | + + + | Address | Unknown | + + + | Phone | Unavailable | + + + Support + + +---------+ + | Name | Relationship | Address | Phone | + + +---------+ + | Terrence Ortiz | ECON | Unknown | | + + +---------+ + Care Team Providers + +------+ + | Care Renovator Machine Operator Name | Role | Phone [...] | | 2019 | Visit | [facility] [place] | [address] | hypotension (Primary | | | | [address] | [place]ERT[address] RAMOS | Dx) | | | | [address] [address] | | | | | [place] [address] | | | | | | [phone] | | | +--------+---------+ + + + [...] of this note may be different from rnai kulkarni. [facility] Cardiology Cardiology Follow Up Note [...] this monitor. The patient is a current zmgp-sle-cqkz-a-day smoker. We discussed smoking cessation. She has [...] | | | | | [place], [place] | | | | | | [address] | | | | | | | | +--------+---------+ + + + as of this encounter Visit Diagnoses + + | Diagnosis | + + | Orthostatic hypotension - Primary | + +
--- OUTSIDE RECORDS SUMMARY | ~2018-07-05 | XMS | Clinical Summary ---
Demographics + + + | Address | [address] | | | [place] [address] | + + + | Home Phone [...] Team Providers + +------+ + | Care Knock Out Hand Name | Role | Phone | + +------+ + | Kylah Monroe | PP | | + +------+ + Source Comments MELANIE is fully live on both [facility] and [facility].Formerly [facility], [facility] [place] Allergies No Known Allergies Medications + + [...] | | | | | | | [address] | | + +--------+ +--------+ + +--------+ | MEDICAID [place] | OHP | xxxxxxxx | 09/18/19 | [phone] | [address] | Medica | | | PLUS | | 16-Pre | 6 | [address] | id | | | OPEN | | sent | | [place], [place] | | | | CARD | | | | [address] | | + +--------+ +--------+ + +--------+ [...] | 1981 | [phone] | [place] [address] | | | lito | | | 7 (Home) | | + +--------+ +--------+ + +
--- OUTSIDE RECORDS SUMMARY | ~2018-07-05 | XMS | Encounter Summary ---
Demographics + + + | Address | [address] | | | [place] [address] | + + + | Home Phone [...] Author + + + | Author | [facility] | + + + | Organization | [facility] | + + + | Address | Unknown | + + + | Phone | Unavailable | + + + Support + + +---------+ + | Name | Relationship | Address | Phone | + + +---------+ + | Terrence Ortiz | ECON | Unknown | | + + +---------+ + Care Team Providers + +------+ + | Care Fish Hatchery Superintendent Name | Role | Phone | + +------+ + PCP | Unavailable | + +------+ + Encounter Details +--------+ + + + + | Date | Type | Department | Care Team | Description | +--------+ + + + + | 08/28/ | Procedure - | [facility] | Kobe Casper DO | Operative Report | | 2010 | | [address] [place] [address] | | | | | Transcribed | [place] | | | | | | [address] | | | +--------+ + + + [...] | + + | 08/28/2010 2:32 AM [facility] | | REPORT OF [id number] [place], [place] [address] [address] | | SETH INIGUEZ JDATE OF OPERATION: [...] anesthesia in the dorsallithotomy position in the [facility], the patient | | was carefully examined [...] suture of | | 0PDS in a kpwkmo-vu-yqzqy technique and then brought down to the [...] wheal created with | | SETH Solomon [id number] : [id number] DATE: | | 08/28/10epinephrine and a small [...] the tape attached and then withdrawn in lnofa-pk-ogsdcjnbczhpyg. A 10-mm spacer was | | placed [...] 08/28/2010 10:14:14DT: 08/28/2010 10:45:50Job | | #: [id number] Signed 12/04/10 | | 1342 | | | | | | | | | | | | | | Kobe Casper, | | SETH LOPEZ [id number] : [id number] DATE: 08/28/10 | |The Everett catheter was [...] |ISA/Subhash | | | | | | /[id number] | |Electronically Signed 12/04/10 1342 | | | | | | Kobe Casper DO | | | | | | | | | | | | | | | | | | | | | | | | | | | | | | | | | | | |SETH INIGUEZ | |[id number] : [id number] | |[id number] | |ADMIT DATE: 08/28/10 | + + documented in this encounter Visit Diagnoses Not on filedocumented in this encounter"
--- OUTSIDE RECORDS SUMMARY | ~2018-07-05 | XMS | Encounter Summary ---
Demographics + + + | Address | [address] | | | [place] [address] | + + + | Home Phone | | + + + | Preferred Language | Unknown | + + + | Marital Status | Single | + + + | Mormon Affiliation | NON | + + + | Race | White | + + + | Ethnic Group | Not or | + + + Author + + + | Author | [facility] | + + + | Organization | [facility] | + + + | Address | Unknown | + + + | Phone | Unavailable | + + + Support + + +---------+ + | Name | Relationship | Address | Phone | + + +---------+ + | Terrence Ortiz | ECON | Unknown | | + + +---------+ + Care Team Providers + +------+ + | Care Pulmonologist Intensivist Name | Role | Phone | + [...] | | 2017 | | Center at [facility] [address] | [address] | instructions) | | | | [address] | [address] [place], | | | | | Mailcode: [place] | [place] [address] | | | | | for Health and | [phone] | | | | | [facility] 2 | | | | | | [place], [place] | | | | | | [address] | | | | | | [phone] | | | +--------+ + + + [...]
--- OUTSIDE RECORDS SUMMARY | ~2018-07-05 | XMS | Encounter Summary ---
Demographics + + + | Address | [address] | | | [place] [address] | + + + | Home Phone [...] Team Providers + +------+ + | Care Secretary Receptionist Name | Role | Phone | + [...] Smoking | | 2016 | | Center [facility] [address] | [address] | | | | | [address] [facility], | | | | | Mailcode: [facility] [address] | | | | | for Health and | [phone] | | | | | [facility] 2 | | | | | | [place], [place] | | | | | | [address] | | | | | | [phone] | | | +--------+ + + + [...]
--- OUTSIDE RECORDS SUMMARY | ~2018-07-05 | XMS | Encounter Summary ---
Demographics + + + | Address | [address] | | | [place] [address] | + + + | Home Phone | | + + + | Preferred Language | Unknown | + + + | Marital Status | Single | + + + | Advent Affiliation | NON | + + + | Race | White | + + + | Ethnic Group | Not or | + + + Author + + + | Author | [facility] | + + + | Organization | [facility] | + + + | Address | Unknown | + + + | Phone | Unavailable | + + + Support + + +---------+ + | Name | Relationship | Address | Phone | + + +---------+ + | Terrence Ortiz | ECON | Unknown | | + + +---------+ + Care Team Providers + +------+ + | Care Mechanical Systems Engineer Name | Role | Phone | [...] Medical Records | | 2017 | | [place] [address] [address] | [address] | Review | | | | [address] | [address] [place], | | | | | Mailcode: [place] | [place] [address] | | | | | for [facility] and | [phone] | | | | | [facility] 2 | | | | | | [place], [place] | | | | | | [address] | | | | | | [phone] | | | +--------+ + + + [...]
--- OUTSIDE RECORDS SUMMARY | ~2018-07-05 | XMS | Encounter Summary ---
Demographics + + + | Address | [address] | | | [place] [address] | + + + | Home Phone | | + + + | Preferred Language | Unknown | + + + | Marital Status | Single | + + + | Hoahaoism Affiliation | NON | + + + | Race | White | + + + | Ethnic Group | Not or | + + + Author + + + | Author | [facility] | + + + | Organization | [facility] | + + + | Address | Unknown | + + + | Phone | Unavailable | + + + Support + + +---------+ + | Name | Relationship | Address | Phone | + + +---------+ + | Terrence Ortiz | ECON | Unknown | | + + +---------+ + Care Team Providers + +------+ + | Care Registered Diet Technician Name | Role | Phone | [...] Surgery Concerns | | 2017 | | [place] [address] [address] | [address] | | | | | [address] | [place], | | | | | Mailcode: [place] | [place] [address] | | | | | for Health and | [phone] | | | | | [facility] 2 | | | | | | [place], [place] | | | | | | [address] | | | | | | [phone] | | | +--------+ + + + [...]
--- OUTSIDE RECORDS SUMMARY | ~2018-07-05 | XMS | Encounter Summary ---
Demographics + + + | Address | [address] | | | [place] [address] | + + + | Home Phone [...] Team Providers + +------+ + | Care Toxics Program Officer Name | Role | Phone | + [...] | | 2016 | | Center at [facility] [address] | [address] | (Defecography | | | | [address] | [address] [place], | results) | | | | Mailcode: [place] | [place] [address] | | | | | for Health and | [phone] | | | | | [facility] 2 | | | | | | [place], [place] | | | | | | [address] | | | | | | [phone] | | | +--------+ + + + [...]
--- OUTSIDE RECORDS SUMMARY | ~2018-07-05 | XMS | Encounter Summary ---
Demographics + + + | Address | [address] | | | [place] [address] | + + + | Home Phone | | + + + | Preferred Language | Unknown | + + + | Marital Status | Single | + + + | Denominational Affiliation | NON | + + + [...] Team Providers + +------+ + | Care Computer Support Specialist Instructor Name | Role | Phone | + +------+ + | Kylah Monroe | PCP | | + +------+ + Encounter Details +--------+ + + + + | Date | Type | Department | Care Team | Description | +--------+ + + + + | 11/16/ | Abstract | Digestive Health | Marian Huang MD | | | 2016 | | [place] at [facility] [address] | [address] | | | | | [address] | [address] [place], | | | | | Mailcode: [place] | [place] [address] | | | | | [facility] and | [phone] | | | | | [facility] 2 | | | | | | [place], [place] | | | | | | [address] | | | | | | [phone] | | | +--------+ + + + [...]
--- OUTSIDE RECORDS SUMMARY | ~2018-07-05 | XMS | Encounter Summary ---
Demographics + + + | Address | [address] | | | [place] [address] | + + + | Home Phone | | + + + | Preferred Language | Unknown | + + + | Marital Status | Single | + + + | Jewish Affiliation | NON | + + + | Race | White | + + + | Ethnic Group | Not or | + + + Author + + + | Author | [facility] | + + + | Organization | [facility] | + + + | Address | Unknown | + + + | Phone | Unavailable | + + + Support + + +---------+ + | Name | Relationship | Address | Phone | + + +---------+ + | Terrence Ortiz | ECON | Unknown | | + + +---------+ + Care Team Providers + +------+ + | Care Balance Bridge Inspector Name | Role | Phone | + [...] | | | | REQUEST TO | [facility] [place] | [address] [address], [place] | | | | | SURGERY | [address] | [address] | | | | | INBOUND CUSTOMER SERVICE AGENT | Phone: | Phone: | | | | | | [phone] | [phone] | | | | | | Fax: | Fax: | | | | | | [phone] | [phone] | +--------+--------+ + + + + Reason [...] Surgery Scheduling | | 2016 | | [place] [address] [address] | [address] | (LM re surgery | | | | [address] | [facility], | scheduling) | | | | Mailcode: [facility] [address] | | | | | for [facility] and | [phone] | | | | | [facility] 2 | | | | | | [address], [place] | | | | | | [address] | | | | | | [phone] | | | +--------+ + + + [...]
--- OUTSIDE RECORDS SUMMARY | ~2018-07-05 | XMS | Encounter Summary ---
Demographics + + + | Address | [address] | | | [place] [address] | + + + | Home Phone [...] Author + + + | Author | [facility] | + + + | Organization | [facility] | + + + | Address | Unknown | + + + | Phone | Unavailable | + + + Support + + +---------+ + | Name | Relationship | Address | Phone | + + +---------+ + | Terrence Ortiz | ECON | Unknown | | + + +---------+ + Care Team Providers + +------+ + | Care Ditch Repairer Name | Role | Phone | + [...] | | | | Rectal | MD [address] | | | | | | prolapse | [address] | | | | | | Procedures | [address] | | | | | | MRI PELVIS | [facility] [place] | | | | | | WO CONTRAST | [address] | | | | | | | Phone: | | | | | | | [phone] | | | | | | | Fax: | | | | | | | [phone] | | +--------+--------+ + + + + [...] | | | | MRI PELVIS | [place], [place] | | | | | | WO CONTRAST | [address] | | | | | | | Phone: | | | | | | | [phone] | | | | | | | Fax: | | | | | | | [phone] | | +--------+--------+ + + + + [...] | | | | MRI PELVIS | [place], [place] | | | | | | WO CONTRAST | [address] | | | | | | | Phone: | | | | | | | [phone] | | | | | | | Fax: | | | | | | | [phone] | | +--------+--------+ + + + + Encounter Details +--------+ + + + + | Date | Type | Department | Care Team | Description | +--------+ + + + + | 01/01/ | Hospital | Diagnostic Imaging | | | | 2015 | Encounter | Services at [facility] | | | | | | [address] | | | | | | [facility] | | | | | | Mailcode: [address] | | | | | | [facility] | | | | | | [place], [place] | | | | | | [address] | | | | | | [phone] | | | +--------+ + + + [...] | | + +---------+ + + | [facility] DEPARTMENT | | | | | RADIOLOGY | | | | + +---------+ + + documented in this encounter Visit Diagnoses + + | Diagnosis | + + | Rectal prolapse | + + documented in this encounter"
--- OUTSIDE RECORDS SUMMARY | ~2018-07-05 | XMS | Encounter Summary ---
Demographics + + + | Address | [address] | | | [place] [address] | + + + | Home Phone [...] + + + | Author | [facility] | + + + | Organization | [facility] | + + + | Address | Unknown | + + + | Phone | Unavailable | + + + Support + + +---------+ + | Name | Relationship | Address | Phone | + + +---------+ + | Terrence Ortiz | ECON | Unknown | | + + +---------+ + Care Team Providers + +------+ + | Care Art Historian Name | Role | Phone | + [...] | | | | Rectal | MD [address] | | | | | | prolapse | [address] | | | | | | Procedures | [address] | | | | | | MRI PELVIS | [facility] [place] | | | | | | WO CONTRAST | [address] | | | | | | | Phone: | | | | | | | [phone] | | | | | | | Fax: | | | | | | | [phone] | | +--------+--------+ + + + + [...] | | prolapse | [address] | [address] [facility] | | | | | | [facility] | [facility] | | | | | | [facility] | [address] [place], | | | | | | [address] | [place] | | | | | | [facility] | [address] | | | | | | [place], | Phone: | | | | | | [place] [address] | [phone] | | | | | | Phone: | Fax: | | | | | | [phone] | [phone] | | | | | | Fax: | | | | | | | [phone] | | +--------+--------+ + + + + Encounter Details +--------+---------+ + + + | Date | Type | Department | Care Team | Description | +--------+---------+ + + + | 12/31/ | Office | Digestive Health | Marian Huang MD | Rectal prolapse | | 2016 | Visit | Center at [facility] [address] | [address] | (Primary Dx) | | | | [address] | [address] [place], | | | | | Mailcode: [place] | [place] [address] | | | | | for Health and | [phone] | | | | | [facility] 2 | | | | | | [place], [place] | | | | | | [address] | | | | | | [phone] | | | +--------+---------+ + + + [...] Referral patient, I spent 32 minutes of eqas-gu-lrcr time, of which more than half the time was spent in counseling. 32 minute document review Nat Victor MD - 01/01/2016 1:00 PM PSTFormatting of this note might be different from t fransisca original. [facility] H[facility]ORY AND PHYSICAL OFFICE VISIT DATE OF VISIT: 01/01/2016 REFERRING PROVIDER: Paulino Martinez MD REASON FOR VISIT: Recurrent rectal prolapse HISTORY: Sujata Iniguez is a(n) 35 y.o. female [...] Years of education: 13 Occupational History former [employer] formerly [employer] service Social History Main Topics Smoking status: [...] to discuss surgery Nat Zamudio MD [facility] AT [facility] 6TH FLOOR [address] [place] [phone] documented in this encounte r Plan of [...]
--- OUTSIDE RECORDS SUMMARY | ~2018-07-05 | XMS | Clinical Summary ---
Demographics + + + | Address | [address] | | | [place] [address] | + + + | Home Phone | | + + + | Preferred Language | Unknown | + + + | Marital Status | Unknown | + + + | Congregational Affiliation | Unknown | + + + | Race | Unknown | + + + | Ethnic Group | Unknown | + + + Author + + + | Author | [facility] | | | and [place] | + + + | Organization | [facility] | | | and [place] | + + + | Address | Unknown | + + + | Phone | Unavailable | + + + Support + + + + + | Name | Relationship | Address | Phone | + + + + + | Terrence Ortiz | ECON | [place] | | | | | [address] | | + + + + + Care Team Providers + +------+ + | Care Mine Development Engineer Name | Role | Phone | [...] [place] | | | | | | [place] [address] | | | | | | [phone] | | | | | | | [...] +--------+ +---------+--------+ | MEDICARE | MEDICA | [id number] | | [phone] | | Medica | | | RE | | 004-Pr | 5 | | re | | | PART A | | esent | | | | | | AND B | | | | | | + +--------+ +--------+ +---------+--------+ | MEDICARE | MEDICA | [id number] | | [phone] | | Medica | | | RE | | 004-Pr | 5 | | re | | | PART A | | esent | | | | | | AND B | | | | | | + +--------+ +--------+ +---------+--------+ | MED[place]ID [place] | MEDICA | [id number] | | [phone] | | Medica | | | ID [place] | | 017-Pr | 2 | | id | | | PLUS | | esent | | | | + +--------+ +--------+ +---------+--------+ | [place] | MEDICA | [id number] | 07/24/19 | [phone] | | Medica [...] [place]o | | | 7 (Home) | [address] | + +--------+ +--------+ + + | Sujata Iniguez | Person | Self | [birth year] | [address] | | | al/Fam | | 1980 | | [address] [place], [place] | | | lito | | | 7 (Home) | [address] | + +--------+ +--------+ + + Advance Directives Patient has advance care planning documents on file. For more information, please contact:[facility] [place] [address]
--- OUTSIDE RECORDS SUMMARY | ~2018-07-05 | XMS | Encounter Summary ---
Demographics + + + | Address | [address] | | | [place] [address] | + + + | Home Phone [...] Team Providers + +------+ + | Care Wedding Cake Designer Name | Role | Phone | + [...] Medical Records | | 2017 | | [place] [address] [address] | [address] | Review | | | | [address] | [address] [place], | | | | | Mailcode: [place] | [place] [address] | | | | | for [facility] and | [phone] | | | | | [facility] 2 | | | | | | [place], [place] | | | | | | [address] | | | | | | [phone] | | | +--------+ + + + [...]
--- OUTSIDE RECORDS SUMMARY | ~2018-07-05 | XMS | Encounter Summary ---
Demographics + + + | Address | [address] | | | [place] [address] | + + + | Home Phone | | + + + | Preferred Language | Unknown | + + + | Marital Status | Single | + + + | Buddhist Affiliation | NON | + + + | Race | White | + + + | Ethnic Group | Not or | + + + Author + + + | Author | [facility] | + + + | Organization | [facility] | + + + | Address | Unknown | + + + | Phone | Unavailable | + + + Support + + +---------+ + | Name | Relationship | Address | Phone | + + +---------+ + | Terrence Ortiz | ECON | Unknown | | + + +---------+ + Care Team Providers + +------+ + | Care Lead Net Software Developer Name | Role | Phone | [...] | | Center at [facility] | [address] | Review | | | | [address] | [address] | | | | | Mailcode: Center | [place], [place] | | | | | for Health and | [address] | | | | | [facility] 2 | [phone] | | | | | [place], [place] | | | | | | [address] | | | | | | [phone] | | | +--------+ + + + [...]
[~2018-07-05 17:53] MED LIST changes: +CYCLOBENZAPRINE10 MG PO; +ULTRAM50 MG PO; +VITAMIN D35000 UNI1 PO
--- OUTSIDE RECORDS SUMMARY | 2018-07-05 17:56 | XMS ---
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 Ruthy VISIT COUNT (12 MO.) 3 [facility] TOTAL 3 NOTE: Visits indicate total known visits. ED/UCC VISIT TRACKING (12 MO.) 07/05/2018 17:53 [facility] [place] TYPE: Emergency COMPLAINT: - BACK PAIN 06/20/2018 07:56 [facility] [place] TYPE: Emergency COMPLAINT: - BACK PAIN/NO INJURY DIAGNOSES: - Other group home (current) drug therapy - Low back pain - Other chronic pain - Nicotine dependence, unspecified, uncomplicated - Major depressive disorder, single episode, unspecified - Acquired absence of both cervix and uterus - Allergy status to narcotic agent status 08/19/2017 07:30 [facility] [place] TYPE: Emergency COMPLAINT: - SYNCOPE DIAGNOSES: - Other termination clerk (current) drug therapy - Syncope and collapse - Nicotine dependence, unspecified, uncomplicated - Allergy status to narcotic agent status INPATIENT VISIT TRACKING (12 MO.) No inpatient visits to display in this time frame [id number]
[2018-07-05] MEDS ORDERED: NORCO 7.5-3251 EACH PO (18:04)
== END 2018-07-05 20:00 | disposition home or self-care (01) ==
LOC: ED 17:53
DX: G89.29 Other chronic pain (principal); M54.5 Low back pain; F32.9 Major depressive disorder, single episode, unspecified; F17.200 Nicotine dependence, unspecified, uncomplicated; Z90.710 Acquired absence of both cervix and uterus; Z79.899 Other long term (current) drug therapy
CPT/HCPCS: 96372; 99283-25; J1885; J2550

== ENCOUNTER 2019-05-26 03:04 | Emergency (ER) | payer MEDICARE, OTHER ==
[~2019-05-26] VITALS: Ht 172.7 cm; Wt 69.0 kg
[~2019-05-26 03:04] MED LIST changes: +NORCO 7.5-3251 EACH PO
[2019-05-26] MEDS ORDERED: MIDODRINE HCL5 MG PO (03:23)
== END 2019-05-26 03:47 | disposition home or self-care (01) ==
LOC: ED 03:04
DX: M54.5 Low back pain (principal); I10 Essential (primary) hypertension; F17.200 Nicotine dependence, unspecified, uncomplicated; Z90.710 Acquired absence of both cervix and uterus; Z88.5 Allergy status to narcotic agent; Z79.899 Other long term (current) drug therapy
CPT/HCPCS: 99283

== ENCOUNTER 2022-11-08 07:57 | Emergency (ER) | payer MEDICARE, OTHER ==
[~2022-11-08] VITALS: Ht 172.7 cm; Wt 74.8 kg
[~2022-11-08 07:57] MED LIST changes: +MIDODRINE HCL5 MG PO
[2022-11-08 08:23] LABS: BASOPHILS 0.3 % (0-2); EOSINOPHILS 0.1 % (0-6); HEMATOCRIT 47.9 % (35.0-50.0); HEMOGLOBIN 16.1 g/dL (12.0-18.0); LYMPHOCYTES 6.5 % (24-44); MCH 30.5 (27-36); MCHC 33.6 g/dl (30-36); MCV 90.7 fl (81-99); MONOCYTES 1.9 % (0-12); NEUTROPHILS 91.2 % (39-80); PLATELET COUNT 399 K/uL (140-440); RBC 5.28 M/ul (4.3-5.7); RDW 12.9 (10.5-15.0)
[2022-11-08] MEDS ORDERED: WELLBUTRIN XL150 MG PO (08:24)
[2022-11-08] MEDS ORDERED: ATOMOXETINE HC100 MG PO (08:24)
[2022-11-08] MEDS ORDERED: BRINTELLIX20 MG PO (08:24)
[2022-11-08 08:38] LABS: ALBUMIN 4.3 g/dL (3.4-5.0); ALBUMIN/GLOBULIN RATIO 1.05 (1.1-2.4); ANION GAP 18.4 (7-21); BILIRUBIN, TOTAL 0.5 ng/dL (0.2-1.0); BUN/CREATININE RATIO 10.75 (6.0-28.6); CALCIUM 9.7 mg/dL (8.5-10.1); CREATININE, SERUM 0.93 mg/dL (0.55-1.02); MAGNESIUM 1.9 mg/dL (1.8-2.4); POTASSIUM 3.4 mmol/L (3.5-5.1); PROTEIN, TOTAL 8.4 g/dL (6.4-8.2)
[2022-11-08] MEDS ORDERED: ONDANSETRON ODT8 MG PO (09:19)
[2022-11-08] MEDS ORDERED: PROMETHAZINE HC25 M1 PO (09:19)
[2022-11-08 10:39] VITALS: BP 120/68
== END 2022-11-08 10:41 | disposition home or self-care (01) ==
LOC: ED 07:57
PROVIDERS: Emergency Medicine
DX: K29.00 Acute gastritis without bleeding (principal); F17.200 Nicotine dependence, unspecified, uncomplicated; Z88.5 Allergy status to narcotic agent; Z79.899 Other long term (current) drug therapy
CPT/HCPCS: 36415; 80053; 83735; 85025; 96374; 96375; 99284-25; J1790; J2060; J2405; J7030; J7121

== ENCOUNTER 2023-07-27 03:17 | Emergency (ER) | payer MEDICARE, OTHER ==
[~2023-07-27] VITALS: Ht 172.7 cm; Wt 72.0 kg
[~2023-07-27 03:17] MED LIST changes: +ATOMOXETINE HC100 MG PO; +BRINTELLIX20 MG PO; +OMEPRAZOLE20 MG PO; +ONDANSETRON ODT8 MG PO; +PROMETHAZINE HC25 M1 PO; +WELLBUTRIN XL150 MG PO
--- OUTSIDE RECORDS SUMMARY | 2023-07-27 03:22 | XMS ---
PreManage Notification: SETH GAONA Security Motion Picture Projectionist Events No recent Security Events currently on file CRITERIA MET - [facility] - 2 Visits in 30 Days CARE PROVIDERS -, [facility] Dentist: Legal Transcriber [facility] PHONE: [phone] -Aries- Dentist: Legal Transcriber [facility] PHONE: [phone] ITZEL LIU Physician Heating Engineer Current PHONE: Unknown Heather has no Care Guidelines for this patient. E.Maicol VISIT COUNT (12 MO.) 4 BETO Lazaronce [place] M.CCarri ([place]) TOTAL 5 NOTE: Visits indicate total known visits. ED/UCC VISIT TRACKING (12 MO.) 07/27/2023 03:18 [facility] [place] TYPE: Emergency COMPLAINT: - VOMITING/DRY HEAVING 07/07/2023 17:45 [facility] [place] TYPE: Emergency COMPLAINT: - RIGHT ARM BURN DIAGNOSES: - Activity, cooking and baking - Allergy status to narcotic agent - Burn of first degree of right elbow, initial encounter - Burn of first degree of right wrist, initial encounter - Burn of unspecified degree of right wrist, initial encounter - Contact with fats and cooking oils, initial encounter - Depression, unspecified - Nicotine dependence, unspecified, uncomplicated - Other meterman (current) drug therapy - Post-traumatic stress disorder, unspecified [facility] Emergency DIAGNOSES: - Generalized abdominal pain - Nausea with vomiting, unspecified - abd pain - Abdominal Pain - Nausea 12/25/2022 23:39 [facility] [place] TYPE: Emergency COMPLAINT: - VOMITING.ABD PAIN DIAGNOSES: - Allergy status to narcotic agent - Epigastric pain - Nausea with vomiting, unspecified - Nicotine dependence, unspecified, uncomplicated - Other penitentiary (current) drug therapy 11/08/2022 07:58 [facility] [place] TYPE: Emergency COMPLAINT: - ABD PAIN, VOMITING, SWEATS DIAGNOSES: - Acute gastritis without bleeding - Allergy status to narcotic agent - Nicotine dependence, unspecified, uncomplicated - Other meterman (current) drug therapy - Vomiting, unspecified INPATIENT VISIT TRACKING (12 MO.) No inpatient visits to display in this time frame [email or web address]
[2023-07-27] MEDS ORDERED: KETOROLAC TROMETHAMINE 30 MG/ML VIAL IV ONE (03:30)
[2023-07-27] MEDS ORDERED: FAMOTIDINE 20 MG/ 2 ML VIAL IV ONE (03:30)
[2023-07-27] MEDS ORDERED: LACTATED RINGER'S 1,000 ML IV ONE (03:30)
[2023-07-27] MEDS ORDERED: droPERidol 5 MG/2 ML VIAL IV ONE (03:30)
[2023-07-27 04:02] LABS: MCHC 33.6 g/dl (30-36); RDW 12.5 (10.5-15.0)
[2023-07-27 04:05] LABS: BASOPHILS 0.4 % (0-2); EOSINOPHILS 0.2 % (0-6); HEMATOCRIT 43.6 % (35.0-50.0); HEMOGLOBIN 14.7 g/dL (12.0-18.0); LYMPHOCYTES 13.4 % (24-44); MCV 92.3 fl (81-99); MONOCYTES 4.8 % (0-12); NEUTROPHILS 81.2 % (39-80); PLATELET COUNT 438 K/uL (140-440); RBC 4.73 M/ul (4.3-5.7)
[2023-07-27] MEDS ORDERED: WELLBUTRIN XL150 MG PO (04:07)
[2023-07-27 04:26] LABS: BILIRUBIN, URINE NEGATIVE (negative); BLOOD/HGB, URINE NEGATIVE (Negative); KETONE, URINE >=80 (Negative); LEUK ESTERASE, URINE NEGATIVE (negative); NITRITE, URINE NEGATIVE (negative); PH, URINE 7.5 (5-7)
[2023-07-27 04:27] LABS: ALBUMIN/GLOBULIN RATIO 1.08 (1.1-2.4); ANION GAP 21.8 (7-21); BILIRUBIN, TOTAL 0.4 ng/dL (0.2-1.0); BUN/CREATININE RATIO 10.86 (6.0-28.6); CALCIUM 8.9 mg/dL (8.5-10.1); CREATININE, SERUM 0.92 mg/dL (0.55-1.02); MAGNESIUM 1.9 mg/dL (1.8-2.4); POTASSIUM 3.8 mmol/L (3.5-5.1); PROTEIN, TOTAL 7.7 g/dL (6.4-8.2)
[2023-07-27 04:44] LABS: AMPHETAMINES, URINE NEGATIVE (NEGATIVE); BARBITURATES, URINE NEGATIVE (NEGATIVE); BENZODIAZEPINE, URINE NEGATIVE (NEGATIVE); BUPRENORPHINE, URINE NEGATIVE (NEGATIVE); CANNABINOID, URINE POSITIVE (NEGATIVE); COCAINE, URINE NEGATIVE (NEGATIVE); ECSTASY, URINE NEGATIVE (NEGATIVE); FENTANYL, URINE NEGATIVE (NEGATIVE); METHADONE, URINE NEGATIVE (NEGATIVE); OPIATES, URINE NEGATIVE (NEGATIVE); OXYCODONE, URINE NEGATIVE (NEGATIVE); PHENCYCLIDINE, URINE NEGATIVE (NEGATIVE)
[2023-07-27] MEDS ORDERED: PROMETHAZINE HC25 M1 PO (05:09)
[2023-07-27] MEDS ORDERED: OMEPRAZOLE20 MG PO (05:09)
[2023-07-27 05:22] VITALS: BP 145/80
== END 2023-07-27 05:23 | disposition home or self-care (01) ==
LOC: ED 03:17
PROVIDERS: Internal Medicine
DX: R10.13 Epigastric pain (principal); K44.9 Diaphragmatic hernia without obstruction or gangrene; F17.200 Nicotine dependence, unspecified, uncomplicated; Z88.5 Allergy status to narcotic agent; Z79.899 Other long term (current) drug therapy
CPT/HCPCS: 36415; 80053; 80307; 81003; 83036; 83690; 83735; 85025; 96361; 96374; 96375; 99284-25; J1790; J1885; J7121

== ENCOUNTER 2024-05-11 06:04 | Emergency (ER) | payer MEDICARE, OTHER ==
[~2024-05-11] VITALS: Ht 172.7 cm; Wt 76.0 kg
[2024-05-11 06:23] LABS: BASOPHILS 0.2 % (0-2); EOSINOPHILS 1.3 % (0-6); HEMATOCRIT 46.2 % (35.0-50.0); HEMOGLOBIN 15.8 g/dL (12.0-18.0); LYMPHOCYTES 3.5 % (24-44); MCH 31.2 (27-36); MCHC 34.2 g/dl (30-36); MCV 91.2 fl (81-99); MONOCYTES 3.7 % (0-12); NEUTROPHILS 91.3 % (39-80); PLATELET COUNT 414 K/uL (140-440); RBC 5.06 M/ul (4.3-5.7); RDW 13.2 (10.5-15.0)
[2024-05-11] MEDS ORDERED: SODIUM CHLORIDE 0.9% 2,000 ML IV SCH (06:30)
[2024-05-11] MEDS ORDERED: ondansetron HCL 4 MG/2 ML VIAL IV ONE (06:30)
[2024-05-11 06:39] LABS: ALBUMIN 4.3 g/dL (3.4-5.0); ALBUMIN/GLOBULIN RATIO 1.13 (1.1-2.4); ANION GAP 15.8 (7-21); BILIRUBIN, TOTAL 0.6 mg/dL (0.2-1.0); BUN/CREATININE RATIO 24.21 (6.0-28.6); CALCIUM 9.5 mg/dL (8.5-10.1); CREATININE, SERUM 0.95 mg/dL (0.55-1.02); POTASSIUM 3.8 mmol/L (3.5-5.1); PROTEIN, TOTAL 8.1 g/dL (6.4-8.2)
[2024-05-11] MEDS ORDERED: METOCLOPRAMIDE HCL 10 MG/2 ML SDV IV ONE (07:00)
[2024-05-11] MEDS ORDERED: HYDROmorphone HCL 1 MG/ML SYR IV PRN (07:00)
[2024-05-11] MEDS ORDERED: REGLAN10 MG PO (07:46)
[2024-05-11 08:16] VITALS: BP 147/96
== END 2024-05-11 08:17 | disposition home or self-care (01) ==
LOC: ED 06:04
PROVIDERS: Emergency Medicine
DX: R10.9 Unspecified abdominal pain (principal); R19.7 Diarrhea, unspecified
CPT/HCPCS: 36415; 74177; 80053; 83690; 85025; 96361; 96375; 99284-25; J1171; J2405; J2765; J7030; Q9967